=== PATIENT | male | born 1975 | race Caucasian/White ===

== ENCOUNTER → 2019-06-17 18:13 | Outpatient (BNVA) | payer OTHER, SELFPAY | PROVIDERS: Visit Provider Nurse Practitioner | DX: R50.9 Fever, unspecified (principal); L03.90 Cellulitis, unspecified; B34.9 Viral infection, unspecified; Z20.828 Contact with and (suspected) exposure to other viral communicable diseases; L03.116 Cellulitis of left lower limb; L02.416 Cutaneous abscess of left lower limb | CPT/HCPCS: 87400; 87635 ==

== ENCOUNTER 2019-11-22 00:16 | Inpatient (IN) | payer SELFPAY ==
[2019-11-22] VITALS (61 sets, daily range): BP systolic 78–130; BP diastolic 48–81; PULSE 70–88; RESP 14–18; TEMP 36.4–36.6; O2SAT 94–100; BMI 24.4
[2019-11-22] MEDS: midazolam 1 mg/mL INJ 2 mL 4 MG IVP (00:25)
[2019-11-22] MEDS: succinylcholine 20 mg/mL SDV 10mL 200 MG IVP (00:26)
[2019-11-22] MEDS: vecuronium 10 mg SDV IVP (00:30)
[2019-11-22] MEDS: propofol 1,000 MG/100 ML INJ 20 MG (00:35)
--- NOTE | 2019-11-22 00:41 | XRR_ITS ---
PROCEDURE INFORMATION: Exam: XR Chest, 1 View Exam date and time: 11/22/2019 4:17 AM Age: 43 years old Clinical indication: Other: AMS TECHNIQUE: Imaging protocol: XR of the chest Views: 1 view. COMPARISON: CR Chest 1 [place] [id number] 10/22/2018 8:34 AM FINDINGS: Tubes, catheters and devices: ET tube present, tip at the thoracic inlet, about 7-8 cm above johanna. NG tube present, passing beneath the diaphragm. The tip is likely in the fundus of the stomach. The side port of the tube may still be in the lower esophagus/GE junction region. Lungs: No CHF/pulmonary edema. Visible lungs appear essentially clear. Pleural space: No visible pneumothorax. No definite pleural fluid. Heart/Mediastinum: Heart size is within normal limits. Bones/joints: No significant acute finding. XR/XR chest 1V portable [id number] IMPRESSION: 1. No definite pneumonia or CHF. 2. ET tube and NG tube as discussed above. 3. Other findings discussed above.
--- NOTE | 2019-11-22 00:41 | CTR_ITS ---
PROCEDURE INFORMATION: Exam: CT Head Without Contrast Exam date and time: 11/22/2019 1:13 AM Age: 43 years old Clinical indication: Altered mental status/memory loss; Confusion or disorientation; Patient HX: ? Meth od; Additional info: AMS TECHNIQUE: Imaging protocol: Computed tomography of the head without contrast. Radiation optimization: All CT scans at this facility use at least one of these dose optimization techniques: automated exposure control; mA and/or kV adjustment per patient size (includes targeted exams where dose is matched to clinical indication); or iterative reconstruction. COMPARISON: CT head wo con* [id number] 10/22/2018 10:57 AM RADIATION DOSE METRICS: Total DLP (mGy-cm): 798.68 FINDINGS: Brain: No acute intracranial hemorrhage or mass effect. No definite acute infarct by CT. MRI could be more sensitive/specific for detection, as clinically directed. Ventricles: Ventricle size is normal for age. Bones/joints: No definite acute skull fracture. Sinuses: Included paranasal sinuses are essentially clear. Mastoid air cells: No significant acute finding. CT/CT head wo con* [id number] IMPRESSION: 1. No acute intracranial hemorrhage or mass effect. 2. No definite acute infarct by CT, see above. 3. Other findings discussed above. Radiation Dose CTDIVOL = (mGy): DLP = 798.68 (mGy-cm)
--- NOTE | 2019-11-22 00:43 | ECG_ITS ---
[facility] Test Date: 2019-11-22 Pat Name: Yoan Mallory Department: Room: ICU02 Gender: Male Clay Preparation Supervisor: : 1975 Requested By: Sd Shannon Order Number: [id number] Damien MD: Elo Pineda M.D. Measurements Intervals [place] Rate: 81 P: 79 [place]: 128 QRS: 76 QRSD: 104 T: 49 QT: 403 QTc: 468 Interpretive Statements SINUS RHYTHM INTERPRETATION BASED ON A DEFAULT AGE OF 40 YEARS Compared to ECG 10/26/2018 15:16:40 Myocardial infarct finding no longer present Electronically Signed On 11-23-2019 7:57:12 CDT by Elo Pineda M.D. [id number]
[2019-11-22 01:00] LABS: ABG PCO2 38.8 mmHg (35-45); ABG PH Result 7.36 (7.35-7.45); Arterial Blood Gas Hematocrit 44.8 % (42-52); Base Excess ABG -3.2 mmol/L (-2.0-2.0); Blood Gas Allen Test Pos; Blood Gas Sample Site Radial, left; Blood Gas Sample Type Arterial; HCO3 ABG 21.9 mmol/L (22-26); Oxygen Device VENT
[2019-11-22 01:17] LABS: Basophils # 0.1 10^3/uL (0.0-0.1); Basophils % 0.5 %; Eosinophils % 0.2 %; Hematocrit 45.2 % (42.0-52.0); Hemoglobin 14.6 g/dL (11.7-16.6); Lymphocytes % 11.1 %; Mean Corpuscular HGB Conc 32.3 g/dL (30.0-36.0); Mean Corpuscular Hemoglobin 31.9 pg (28.0-34.0); Mean Corpuscular Volume 98.7 fL (80-94); Mean Platelet Volume 11.1 fL (7.4-10.4); Monocytes # 0.6 10^3/uL (0.2-0.9); Neutrophils # 7.65 10^3/uL (1.8-7.7); Neutrophils % 81.9 %; Nucleated Red Blood Cells % 0 %; Platelet Count 241 10^3/cmm (130-400); Red Blood Count 4.58 10^6/uL (4.1-5.3); Red Cell Distribution Width 12.7 % (12.1-15.1); White Blood Count 9.4 10^3/uL (4.0-10.0)
[2019-11-22 01:35] LABS: Alanine Aminotransferase 33 U/L (0-41); Albumin Level 4.8 g/dL (3.5-5.2); Alkaline Phosphatase 90 IU/L (40-130); Blood Urea Nitrogen 12 mg/dL (6-20); Carbon Dioxide 22 mmol/L (22-29); Chloride 100 mmol/L (98-107); Globulin 2.8 g/dL (1.3-4.6); Glomerular Filtration Rate 81.6 mL/min (90-130); Glucose 115 mg/dL (65-115); Magnesium 2.2 mg/dL (1.7-2.3); Osmolality Calculated 283 mOsm/kg (285-295); Phosphorus 4.4 mg/dL (2.5-4.5); Sodium 138 mmol/L (136-145); Total Bilirubin 0.6 mg/dL (0.15-1.2); Total Protein 7.6 g/dL (6.6-8.7)
[2019-11-22 01:36] LABS: Acetaminophen < 5.0 ug/mL (10-30); Alcohol Level < 10 mg/dL (0-10); Salicylate < 0.3 mg/dL (3-10)
[2019-11-22 01:38] LABS: Anion Gap 20.2 (5-19); Aspartate Amino Transferase 42 U/L (0-40); Potassium 4.2 mmol/L (3.5-5.1); Troponin(5th) Baseline 9 ng/L (0-15)
[2019-11-22 01:55] LABS: Creatine Phosphokinase 2268 U/L (39-308)
[2019-11-22 02:01] LABS: Lactate (Lactic Acid level) 1.8 mmol/L (0.5-2.2)
[2019-11-22] MEDS: sodium chloride 0.9% 1,000 ML 999 ML IV (02:19)
--- NOTE | 2019-11-22 02:43 | ECG_ITS ---
[facility] Test Date: 2019-11-22 Pat Name: Yoan Mallory Department: Room: ICU02 Gender: Male Saw Feeder: : 1975 Requested By: Sd Shannon Order Number: [id number] Damien MD: Elo Pineda M.D. Measurements Intervals [place] Rate: 80 P: 70 SD: 133 QRS: -1 QRSD: 97 T: 9 QT: 416 QTc: 481 Interpretive Statements SINUS RHYTHM SEPTAL MYOCARDIAL INFARCTION [40+ ms Q WAVE IN V1/V2], OF INDETERMINATE AGE Compared to ECG 11/22/2019 03:24:49 Myocardial infarct finding now present Electronically Signed On 11-23-2019 8:25:21 CDT by Elo Pineda M.D. [email or web address] coffee memorial hospitalT[facility].[employer]/store/[id number]
--- NOTE | 2019-11-22 02:49 | PM.HP ---
Providers/Chief Complaint Chief Complaint: OD History of Present Illness Yoan Mallory is a 43 year old male dropped off of the emergency department after taking a large amount of methamphetamine from the history that was given to me by the emergency department physician. Patient is intubated and I cannot get any further information from him. While in the ER he was found to have significant decrease in his responsiveness to the point he needed intubated for airway protection. The emergency department physician tells me that he was only responsive to deep sternal rub, with agitation. No known suicide attempt, but will need interviewed regarding intention of overdose when possible. Review of Systems General: Reports: ROS unobtainable due to endotracheal tube Medications/Allergies Allergies Allergy/AdvReac Type Severity Reaction Status Date / Time clindamycin Allergy ALGY-Hives Verified 06/17/19 17:47 PFSH Acute PFSH: Medical History (Updated 11/22/19 @ 02:58 by Amador Balbuena MD) Depression Methamphetamine use Tobacco dependency Social History Smoking and tobacco status: current every day smoker Supplemental PFSH Information: History of depression and tobacco dependency taken from old records. Patient currently intubated and sedated Vitals/I&O/Wt Last Vital Signs Pulse 88 11/22/19 02:45 Resp 18 11/22/19 02:45 BP 119/81 11/22/19 02:45 Pulse Ox 100 11/22/19 02:45 Weight last 48 hrs Weight 79.379 kg Physical Exam Narrative: EXAM NARRATIVE: General exam is intubated and sedated male, no distress HEENT: Pupils equally round. Oropharynx with endotracheal tube. Neck is supple no lymphadenopathy thyromegaly Cardiovascular regular rate and rhythm without murmur, no S3 or S4 Lungs clear no wheezing or crackles Abdomen soft with positive bowel sounds. No obvious organomegaly Kim Extremities no cyanosis clubbing or edema. IO is noted left lower extremity. Multiple track segovia Skin: Track segovia is noted. Mild erythema lateral to left knee. Neurologic: Intubated and sedated and paralyzed. Urinary Catheter Management^: Kim: Cath Placed During This Visit: yes Urinary Catheter Date of Insertion: 11/22/19 Urinary Catheter Time of Insertion: 02:42 Data : 11/22/19 00:55 11/22/19 00:55 Other data: CT head, no acute findings ABG with pH 7.36, PCO2 38, PO2 490 AST slightly elevated at 42 CK elevated at 2268 Salicylate level less than 2.3, acetaminophen level less than 5, alcohol level less than 10 Chest x-ray pending Urinalysis pending and urine drug screen pending EKG reported to me to be normal, but at this point it has not crossed over to [employer]. A&P Assessment and plan (1) Methamphetamine use: Intubated and sedated Propofol, fentanyl for sedation Reevaluate later this morning to see if he is appropriate for extubation Thiamine Monitor for any withdrawal Check hepatitis panel, HIV Status: Acute (2) Rhabdomyolysis: Fluids Serial pain, electrolyte monitoring to ensure kidney function recovers Status: Acute Additional A&P Information Transaminitis. Check hepatitis panel history of tobacco dependency, will need counseling History of depression Full code Lovenox for DVT prophylaxis Attestations Medical Necessity Statement*: Will need greater than 2 midnight stay for evaluation of methamphetamine overdose Critical Care Time: 35 minutes spent in critical care time at bedside reviewing patient chart, discussion with physician, examination of this patient who had overdose of methamphetamine requiring respiratory support with endotracheal intubation and ventilation. High risk for decompensation, or withdrawal. Coding Level of Care Code Acute Salvage Supervisor for Bessyg Jessica Diagnoses Methamphetamine use F15.10 Rhabdomyolysis M62.82
[2019-11-22 03:03] LABS: Add Urine Microscopic? NO
[2019-11-22 03:07] LABS: Bilirubin Urine 1+ (NEGATIVE); Blood Urine Neg (Negative); Glucose Urine UA Norm (Normal); Ketones Urine 1+ (Negative); Leukocyte Esterase Urine Negative (Negative); Nitrate Urine Negative (Negative); Protein Urine Neg (Negative); Urine Appearance Clear (CLEAR); Urine Color Yellow (Yellow); Urobilinogen Urine 4 mg/dL (Negative); pH Urine 5 (5-7)
[2019-11-22 03:14] LABS: Amphetamines Screen Urine Positive (Negative); Barbiturates Screen Urine Negative (Negative); Benzodiazepines Screen Urine Negative (Negative); Cocaine Screen Urine Negative (Negative); Opiate Screen Urine Negative (Negative); PCP Screen Urine Positive (Negative); THC Screen Urine Negative (Negative)
--- NOTE | 2019-11-22 05:22 | PC.NURSE ---
patient was dropped at door in ER, with note stating he ingested 7 grams of meth, patient had GCS less than * initially, on placment of IO patient became combative, security called, and MD decided to because of GCS and combative situation to intubate, medications given following MD orders, ET tube placed, see RT notes, OG tube placed and verifed with xray, keith placed, urine returned, sedation medication started following orders, patient was taken to ICU in stable condition
[2019-11-22] MEDS: propofol 1,000 MG/100 ML INJ 23.8 MG IV ×2 (05:28→18:09)
[2019-11-22] MEDS: enoxaparin 40 mg/0.4 mL Syringe SUBCUT (05:28)
--- NOTE | 2019-11-22 05:29 | ED_ITS ---
HPI - Overdose General: Chief Complaint: Overdose Stated Complaint: OD Time Seen by Provider: 11/22/19 00:22 History of Present Illness: HPI Narrative: 43-year-old male dropped off at the front door by unknown object. On arrival, he was obtunded, not handling his own secretions, and responsive only to painful stimuli with nonpurposeful movement. Somewhat later, we received an anonymous call that this patient had taken 7 g of methamphetamine orally.We do not know intent. complaint: other Onset (ago): minute(s) Review of Systems General: Reports: ROS unobtainable due to medical condition and ROS unobtainable due to mental status PFS ED PFSH: Medical History (Updated 11/22/19 @ 05:47 by Sd Britton DO) Depression Methamphetamine use Tobacco dependency Social History Smoking and tobacco status: current every day smoker Physical Exam Const: GENERAL APPEARANCE: in distress and ill appearing; not well kempt ORIENTATION/CONSCIOUSNESS: Yes patient obtunded HENMT: COMMON NORMALS: normocephalic, external ears normal and Normal external nose present HEAD & SCALP: normocephalic FACE & SINUS: normal facial exam NOSE: Normal external nose present and No nasal discharge present EXTERNAL EAR: Yes external ears normal MOUTH: tongue normal and other THROAT: posterior oropharynx normal; no peritonsillar mass Eye: COMMON NORMALS: Equal, round and reactive pupils present and conjunctivae normal ALIGNMENT: Yes alignment normal EYELID: eyelids normal CONJUNC TIVA: Yes conjunctivae normal PUPIL: Yes Equal, round and reactive pupils present and Yes Dilated pupils Neck/C-Spine: COMMON NORMALS: full ROM GENERAL: No tracheal deviation Chest: COMMONS NORMALS: normal inspection of the chest CHEST: No tenderness Resp: COMMON NORMALS: clear to auscultation bilaterally EFFORT & INSPECTION: No tachypneic, No respiratory distress, No retractions, No uses accessory muscles and No tracheal deviation AUSCULTATION: clear to auscultation bilaterally, no rhonchi, wheezes and diminished lung sounds Cardio: COMMON NORMALS: regular rhythm RATE: tachycardic RHYTHM: regular rhythm HEART SOUNDS: no murmurs PERIPHERAL PULSES: radial pulses present GI: INSPECTION: No abdominal distension AUSCULTATION: No Hyperactive bowel sounds present and No Hypoactive bowel sounds present PALPATION: No Guarding due to palpation present (GI) and No Rigid due to palpation PERCUSSION: no dullness to percussion and no tympanic to percussion Neuro: STEVEN COMA SCALE: document GCS findings Steven coma scale eye opening: None [place] coma scale verbal response: None [place] coma scale motor response: Normal flexion Steven coma scale total score: 6 Psych: APPEARANCE: No well kempt ATTITUDE: Yes bizarre ACTIVITY/MOTOR BEHAVIOR: Yes psychomotor agitation and Yes fidgeting SPEECH: Yes incoherent Skin: COMMON NORMALS: no rashes or lesions noted GENERAL SKIN EXAM: no rashes or lesions noted Procedures Intubation Time out performed: No sedative: Etomidate Mg Given: 20 paralytic: Succinylcholine Mg Given: 200 Laryngoscope: Amy (4) ET Tube Size: 8 ET Tube Uncuffed: No Tube Secured Depth (cm): 24 Tube Secured Location: lips Tube Placement Confirmation: visualized tube passing through cords, equal breath sounds bilaterally and confirmation by capnometry Patient Tolerated Procedure: well and no complications Intubation Complications: none Course Vital Signs: Vital signs: Vital Signs Temperature 97.6 F 11/22/19 04:45 Pulse Rate 77 11/22/19 05:00 Respiratory Rate 14 11/22/19 05:11 Blood Pressure 114/81 11/22/19 05:00 Pulse Oximetry 100 11/22/19 05:00 MDM - Overdose MDM Narrative: Medical decision making narrative: 43-year-old obtunded male with a loose history of methamphetamine ingestion. On arrival, he was not maintaining his airway well, had trouble with secretions, significantly decreased mental status with a GCS of 6. He was intubated on arrival without complication. He was placed on the ventilator, and worked up further. CT revealed no acute findings. Chest x-ray is negative. There is appropriate placement of NG tube and ET tube by chest x-ray. His laboratory shows a hemoglobin of 14.6, white count 9.4, and normal electrolytes. He has a significantly elevated CK level I expect this will only increase. He will go to the ICU. Lab Data: Labs: Lab Results 11/22/19 11/22/19 11/22/19 Range/Units 00:50 00:50 00:52 WBC (4.0-10.0) 10^3/ uL RBC (4.1-5.3) 10^6/u L Hgb (11.7-16.6) g/dL Hct (42.0-52.0) % MCV (80-94) fL MCH (28.0-34.0) pg MCHC (30.0-36.0) g/dL RDW (12.1-15.1) % Plt Count (130-400) 10^3/c mm MPV (7.4-10.4) fL Neut % (Auto) % Lymph % (Auto) % [place] % (Auto) % Eos % (Auto) % Baso % (Auto) % Neut # (Auto) (1.8-7.7) 10^3/u L Lymph # (Auto) (0.8-4.8) 10^3/u L [place] # (Auto) (0.2-0.9) 10^3/u L Eos # (Auto) (0.0-0.8) 10^3/u L Baso # (Auto) (0.0-0.1) 10^3/u L Nucleated RBC % (a uto) % Nucleated RBCs # /100WBC Specimen Type Arterial Sample Site Radial, left ABG pH 7.36 (7.35-7.45) ABG pCO2 38.8 (35-45) mmHg ABG pO2 490.0 H (80.0-100.0) mmH g ABG HCO3 21.9 L (22-26) mmol/L ABG Base Excess -3.2 L (-2.0-2.0) mmol/ L Ary Test Pos Hematocrit 44.8 (42-52) % O2 Delivery Device Vent Core Java Software Engineer ID [email or web address] Sodium (136-145) mmol/L Potassium (3.5-5.1) mmol/L Chloride (98-107) mmol/L Carbon Dioxide (22-29) mmol/L Anion Gap (5-19) BUN (6-20) mg/dL Creatinine (0.7-1.2) mg/dL GFR Calculation (90-130) mL/min Glucose (65-115) mg/dL Calculated Osmolal ity (285-295) mOsm/k g Lactate (0.5-2.2) mmol/L Calcium (8.5-10.5) mg/dL Phosphorus (2.5-4.5) mg/dL Magnesium (1.7-2.3) mg/dL Total Bilirubin (0.15-1.2) mg/dL AST (0-40) U/L ALT (0-41) U/L Alkaline Phosphata se (40-130) IU/L Creatine Kinase (39-308) U/L Troponin T Baselin e (0-15) ng/L C-Reactive Protein (0.0-4.9) mg/L Total Protein (6.6-8.7) g/dL Albumin (3.5-5.2) g/dL Globulin (1.3-4.6) g/dL Urine Color Yellow (Yellow) Urine Appearance Clear (CLEAR) Urine pH 5 (5-7) Ur Specific Gravit y 1.030 (1.005-1.030) Urine Protein Neg (Negative) Urine Glucose (UA) Norm (Normal) Urine Ketones 1+ H (Negative) Urine Blood Neg (Negative) Urine Nitrate Negative (Negative) Urine Bilirubin 1+ H (NEGATIVE) Urine Urobilinogen 4 H (Negative) mg/dL Ur Leukocyte Annabella ase Negative (Negative) Salicylates (3-10) mg/dL Urine Opiates Scre en Negative (Negative) ng/mL Acetaminophen (10-30) ug/mL Ur Barbiturates Sc reen Negative (Negative) ng/mL Ur Phencyclidine S crn Positive H (Negative) ng/mL Ur Amphetamines Sc reen Positive H (Negative) ng/mL U Benzodiazepines Scrn Negative (Negative) ng/mL Urine Cocaine Scre en Negative (Negative) ng/mL U Marijuana (THC) Screen Negative (Negative) ng/mL Ethyl Alcohol (0-10) mg/dL 11/22/19 11/22/19 11/22/19 Range/Units 00:55 00:55 00:55 WBC 9.4 (4.0-10.0) 10^3/ uL RBC 4.58 (4.1-5.3) 10^6/u L Hgb 14.6 (11.7-16.6) g/dL Hct 45.2 (42.0-52.0) % MCV 98.7 H (80-94) fL MCH 31.9 (28.0-34.0) pg MCHC 32.3 (30.0-36.0) g/dL RDW 12.7 (12.1-15.1) % Plt Count 241 (130-400) 10^3/c mm MPV 11.1 H (7.4-10.4) fL Neut % (Auto) 81.9 % Lymph % (Auto) 11.1 % [place] % (Auto) 6.0 % Eos % (Auto) 0.2 % Baso % (Auto) 0.5 % Neut # (Auto) 7.65 (1.8-7.7) 10^3/u L Lymph # (Auto) 1.0 (0.8-4.8) 10^3/u L [place] # (Auto) 0.6 (0.2-0.9) 10^3/u L Eos # (Auto) 0.0 (0.0-0.8) 10^3/u L Baso # (Auto) 0.1 (0.0-0.1) 10^3/u L Nucleated RBC % (a uto) 0 % Nucleated RBCs # 0.0 /100WBC Specimen Type Sample Site ABG pH (7.35-7.45) ABG pCO2 (35-45) mmHg ABG pO2 (80.0-100.0) mmH g ABG HCO3 (22-26) mmol/L ABG Base Excess (-2.0-2.0) mmol/ L Ray Test Hematocrit (42-52) % O2 Delivery Device Core Java Software Engineer ID Sodium 138 (136-145) mmol/L Potassium 4.2 (3.5-5.1) mmol/L Chloride 100 (98-107) mmol/L Carbon Dioxide 22 (22-29) mmol/L Anion Gap 20.2 H (5-19) BUN 12 (6-20) mg/dL Creatinine 1.0 (0.7-1.2) mg/dL GFR Calculation 81.6 L (90-130) mL/min Glucose 115 (65-115) mg/dL Calculated Osmolal ity 283 L (285-295) mOsm/k g Lactate (0.5-2.2) mmol/L Calcium 9.0 (8.5-10.5) mg/dL Phosphorus 4.4 (2.5-4.5) mg/dL Magnesium 2.2 (1.7-2.3) mg/dL Total Bilirubin 0.6 (0.15-1.2) mg/dL AST 42 H (0-40) U/L ALT 33 (0-41) U/L Alkaline Phosphata se 90 (40-130) IU/L Creatine Kinase 2268 H* (39-308) U/L Troponin T Baselin e 9 (0-15) ng/L C-Reactive Protein 7.0 H (0.0-4.9) mg/L Total Protein 7.6 (6.6-8.7) g/dL Albumin 4.8 (3.5-5.2) g/dL Globulin 2.8 (1.3-4.6) g/dL Urine Color (Yellow) Urine Appearance (CLEAR) Urine pH (5-7) Ur Specific Gravit y (1.005-1.030) Urine Protein (Negative) Urine Glucose (UA) (Normal) Urine Ketones (Negative) Urine Blood (Negative) Urine Nitrate (Negative) Urine Bilirubin (NEGATIVE) Urine Urobilinogen (Negative) mg/dL Ur Leukocyte Annabella ase (Negative) Salicylates < 0.3 L (3-10) mg/dL Urine Opiates Scre en (Negative) ng/mL Acetaminophen < 5.0 L (10-30) ug/mL Ur Barbiturates Sc reen (Negative) ng/mL Ur Phencyclidine S crn (Negative) ng/mL Ur Amphetamines Sc reen (Negative) ng/mL U Benzodiazepines Scrn (Negative) ng/mL Urine Cocaine Scre en (Negative) ng/mL U Marijuana (THC) Screen (Negative) ng/mL Ethyl Alcohol < 10 (0-10) mg/dL 11/22/19 Range/Units 01:30 WBC (4.0-10.0) 10^3/ uL RBC (4.1-5.3) 10^6/u L Hgb (11.7-16.6) g/dL Hct (42.0-52.0) % MCV (80-94) fL MCH (28.0-34.0) pg MCHC (30.0-36.0) g/dL RDW (12.1-15.1) % Plt Count (130-400) 10^3/c mm MPV (7.4-10.4) fL Neut % (Auto) % Lymph % (Auto) % [place] % (Auto) % Eos % (Auto) % Baso % (Auto) % Neut # (Auto) (1.8-7.7) 10^3/u L Lymph # (Auto) (0.8-4.8) 10^3/u L [place] # (Auto) (0.2-0.9) 10^3/u L Eos # (Auto) (0.0-0.8) 10^3/u L Baso # (Auto) (0.0-0.1) 10^3/u L Nucleated RBC % (a uto) % Nucleated RBCs # /100WBC Specimen Type Sample Site ABG pH (7.35-7.45) ABG pCO2 (35-45) mmHg ABG pO2 (80.0-100.0) mmH g ABG HCO3 (22-26) mmol/L ABG Base Excess (-2.0-2.0) mmol/ L Ray Test Hematocrit (42-52) % O2 Delivery Device Core Java Software Engineer ID Sodium (136-145) mmol/L Potassium (3.5-5.1) mmol/L Chloride (98-107) mmol/L Carbon Dioxide (22-29) mmol/L Anion Gap (5-19) BUN (6-20) mg/dL Creatinine (0.7-1.2) mg/dL GFR Calculation (90-130) mL/min Glucose (65-115) mg/dL Calculated Osmolal ity (285-295) mOsm/k g Lactate 1.8 (0.5-2.2) mmol/L Calcium (8.5-10.5) mg/dL Phosphorus (2.5-4.5) mg/dL Magnesium (1.7-2.3) mg/dL Total Bilirubin (0.15-1.2) mg/dL AST (0-40) U/L ALT (0-41) U/L Alkaline Phosphata se (40-130) IU/L Creatine Kinase (39-308) U/L Troponin T Baselin e (0-15) ng/L C-Reactive Protein (0.0-4.9) mg/L Total Protein (6.6-8.7) g/dL Albumin (3.5-5.2) g/dL Globulin (1.3-4.6) g/dL Urine Color (Yellow) Urine Appearance (CLEAR) Urine pH (5-7) Ur Specific Gravit y (1.005-1.030) Urine Protein (Negative) Urine Glucose (UA) (Normal) Urine Ketones (Negative) Urine Blood (Negative) Urine Nitrate (Negative) Urine Bilirubin (NEGATIVE) Urine Urobilinogen (Negative) mg/dL Ur Leukocyte Annabella ase (Negative) Salicylates (3-10) mg/dL Urine Opiates Scre en (Negative) ng/mL Acetaminophen (10-30) ug/mL Ur Barbiturates Sc reen (Negative) ng/mL Ur Phencyclidine S crn (Negative) ng/mL Ur Amphetamines Sc reen (Negative) ng/mL U Benzodiazepines Scrn (Negative) ng/mL Urine Cocaine Scre en (Negative) ng/mL U Marijuana (THC) Screen (Negative) ng/mL Ethyl Alcohol (0-10) mg/dL Critical Care Time Critical Care Time: Critical Care Time: Yes Total Critical Care Time: 40 Attestation: This case had a high probability of a clinically significant, sudden, or life threatening deterioration of this patient's condition which required my full and direct attention, intervention and personal management. Discharge Plan Discharge Patient Disposition: Admitted As Inpatient Admit Provider: Amador Balbuena Clinical Impression: Methamphetamine use Drug overdose Qualifiers: Encounter type: initial encounter Injury intent: undetermined intent Qualified Code(s): T50.904A - Poisoning by unspecified drugs, medicaments and biological substances, undetermined, initial encounter Rhabdomyolysis Qualifiers: Rhabdomyolysis type: non-traumatic Qualified Code(s): M62.82 - Rhabdomyolysis Condition: Stable Interventions: ED Discharge Assessment Last Done: 11/22/19 05:27 ED Charges Last Done: 11/22/19 05:27 Discharge Date/Time: 11/22/19 05:28 Coding Level of Care Code ED Cuff Matcher for Sharonda Fwd Exam Comprehensive
[2019-11-22] MEDS: sodium chloride 0.9% 1,000 ML 175 ML IV ×3 (06:01→18:10)
--- NOTE | 2019-11-22 06:43 | ECG_ITS ---
[facility] Test Date: 2019-11-22 Pat Name: Yoan Mallory Department: Room: ICU02 Gender: Male Building Performance Specialist: : 1975 Requested By: Sd Shannon Order Number: [id number] Damien MD: Elo Pineda M.D. Measurements Intervals [place] Rate: 71 P: 75 [place]: 130 QRS: 40 QRSD: 101 T: 9 QT: 461 QTc: 504 Interpretive Statements SINUS RHYTHM POSSIBLE RIGHT VENTRICULAR CONDUCTION DELAY [RSR (QR) IN V1/V2] ANTEROSEPTAL MYOCARDIAL INFARCTION [40+ ms Q WAVE IN V1-V4], OF INDETERMINATE AGE Compared to ECG 11/22/2019 05:28:08 No significant changes Electronically Signed On 11-23-2019 8:25:00 CDT by Elo Pineda M.D. [email or web address] [email or web address] [email or web address] Genomicsmercy [facility].[employer]/store/[id number]
[2019-11-22 07:49] LABS: Hepatitis A Antibody IgM Non-Reactive (Nonreactive); Hepatitis B Core IgM Non-Reactive (Nonreactive); Hepatitis B Surface Antigen Non-Reactive (Nonreactive); Hepatitis C Virus Antibody Non-Reactive (Nonreactive)
[2019-11-22 08:29] LABS: HIV 1 & 2 Antibody Non-Reactive (Non-Reactiv); HIV 1 & 2 Antigen Non-Reactive (Non-Reactiv)
[2019-11-22] MEDS: thiamine 100 mg Tablet OG-TUBE (08:48)
[2019-11-22] MEDS: propofol 1,000 MG/100 ML INJ 19.1 MG IV (09:03)
[2019-11-22 11:17] LABS: Troponin T (5th) Once 9 ng/L (0-15)
[2019-11-22] MEDS: propofol 1,000 MG/100 ML INJ 11.9 MG IV (13:37)
[2019-11-22 16:01] LABS: ABG PCO2 43.7 mmHg (35-45); ABG PH Result 7.41 (7.35-7.45); Alveolar-Arterial Oxygen Gradi 6.8 mmHg (5-10); Arterial Blood Gas Hematocrit 40.5 % (42-52); Base Excess ABG 2.2 mmol/L (-2.0-2.0); Blood Gas Allen Test Pos; Blood Gas Operator Identificat GD; Blood Gas Sample Site Radial, left; Blood Gas Sample Type Arterial; Blood Gas Tidal Volume 0.55; Carboxyhemoglobin 0.6 %THgb (0.4-20.1); HCO3 ABG 27.4 mmol/L (22-26); Ionized Calcium Level - ABG 1.2 mmol/L (1.1-1.4); Oxygen Device VENT; Oxygen Saturation ABG 97.6; PO2 ABG 93.3 mmHg (80.0-100.0); Potassium Level - ABG 3.7 mmol/L (3.5-5.0); Total Hemoglobin 13.2 g/dL (14-18)
--- NOTE | 2019-11-22 16:21 | PC.NURSE ---
Patient woke up after weaning sedation, combative, sitting up in bed, try to pull hands from restraints, et trying to remove tube by coughing. Sedation titrated back to baseline. Patient resting comfortably. Free from harm. Will continue to monitor.
--- NOTE | 2019-11-22 16:46 | P.PN_ITS ---
Subjective Subjective: Interval history: Overnight labs and H&P reviewed. Patient remains hemodynamically stable. Remains intubated sedated, currently on fentanyl and propofol. Medications: Reviewed: Yes Vitals/I&O/Wt Last Vital Signs Temp 97.5 F L 11/22/19 12:30 Pulse 85 11/22/19 16:00 Resp 14 11/22/19 16:08 BP 130/73 11/22/19 16:00 Pulse Ox 98 11/22/19 16:00 11/22/19 11/22/19 11/22/19 06:59 14:59 22:59 Intake Total 1187.806 / 1187.806 44.860 / 1232.666 Output Total 250 / 250 950 / 950 Balance -250 / -250 237.806 / 237.806 44.860 / 282.666 Weight last 48 hrs Weight 79.333 kg Weight 79.379 kg Physical Exam Narrative: EXAM NARRATIVE: GEN:intubated, sedated CVS: S1S2 N RS: CTA B/L anteriorly Abd: Soft, nt/nd , bs+ CUP MACHINE OPERATOR: unable to assess EXT: multiple track segovia over B/L elbows and thighs Urinary Catheter Management^: Kim: Cath Placed During This Visit: yes Reason for Continuing Indwelling Catheter: Accurate Measurement of Urinary Output in Critically Ill Patients Urinary Catheter Date of Insertion: 11/22/19 Urinary Catheter Time of Insertion: 02:42 Data : 11/22/19 00:55 11/22/19 00:55 Micro: Microbiology 11/22/19 09:50 Gram Stain - Final Sputum - Endotracheal Tube Aspirate A&P Assessment and plan (1) Methamphetamine use: Intubated and sedated Propofol, fentanyl for sedation No significant change in mnetation with attempting to reduce propofol for now Continue attmepts to wean and ABG prn hepatitis panel, HIV negative Status: Acute (2) Rhabdomyolysis: Fluids Serial pain, electrolyte monitoring to ensure kidney function recovers Status: Acute Qualifiers: Rhabdomyolysis type: non-traumatic Qualified Code(s): M62.82 - Rhabdomyolysis Additional A&P Information Transaminitis. Check hepatitis panel history of tobacco dependency, will need counseling once off vent History of depression Full code Lovenox for DVT prophylaxis Attestations Medical Necessity Statement*: intubated, sedated, from meth overdose, continue attenpts to wean Coding Level of Care Code Acute Florist Supplies Salesperson for Chg Fwd Diagnoses Methamphetamine use F15.10 Rhabdomyolysis M62.82 Rhabdomyolysis type: non-traumatic
[2019-11-22] MEDS: pantoprazole 40 mg SDV IVP (21:17)
[2019-11-22] MEDS: propofol 1,000 MG/100 ML INJ 21.4 MG IV (22:17)
[2019-11-23] VITALS (56 sets, daily range): BP systolic 82–116; BP diastolic 47–72; PULSE 76–88; RESP 14–18; TEMP 36.6–37.4; O2SAT 93–99
[2019-11-23] MEDS: propofol 1,000 MG/100 ML INJ 19.1 MG IV ×3 (03:18→19:41)
[2019-11-23] MEDS: enoxaparin 40 mg/0.4 mL Syringe SUBCUT (04:39)
[2019-11-23 04:53] LABS: Basophils # 0.1 10^3/uL (0.0-0.1); Eosinophils # 0.1 10^3/uL (0.0-0.8); Eosinophils % 1.8 %; Hematocrit 35.5 % (42.0-52.0); Hemoglobin 11.5 g/dL (11.7-16.6); Lymphocytes % 39.6 %; Mean Corpuscular HGB Conc 32.4 g/dL (30.0-36.0); Mean Corpuscular Hemoglobin 31.9 pg (28.0-34.0); Mean Corpuscular Volume 98.6 fL (80-94); Mean Platelet Volume 11.3 fL (7.4-10.4); Monocytes # 0.5 10^3/uL (0.2-0.9); Monocytes % 10.2 %; Neutrophils # 2.32 10^3/uL (1.8-7.7); Neutrophils % 47.2 %; Nucleated Red Blood Cells % 0 %; Platelet Count 182 10^3/cmm (130-400); Red Cell Distribution Width 13.3 % (12.1-15.1); White Blood Count 4.9 10^3/uL (4.0-10.0)
[2019-11-23 05:12] LABS: ABG PCO2 33.2 mmHg (35-45); ABG PH Result 7.47 (7.35-7.45); Arterial Blood Gas Hematocrit 37.5 % (42-52); Base Excess ABG 0.9 mmol/L (-2.0-2.0); Blood Gas Allen Test Pos; Blood Gas Sample Site Radial, left; Blood Gas Sample Type Arterial; Blood Gas Tidal Volume 0.55; HCO3 ABG 24.2 mmol/L (22-26); Oxygen Device VENT; PO2 ABG 54.4 mmHg (80.0-100.0)
[2019-11-23 05:16] LABS: Magnesium 2.1 mg/dL (1.7-2.3)
[2019-11-23 05:18] LABS: Alanine Aminotransferase 20 U/L (0-41); Albumin Level 3.2 g/dL (3.5-5.2); Alkaline Phosphatase 77 IU/L (40-130); Anion Gap 11.6 (5-19); Aspartate Amino Transferase 22 U/L (0-40); Blood Urea Nitrogen 11 mg/dL (6-20); Calcium 8.1 mg/dL (8.5-10.5); Carbon Dioxide 25 mmol/L (22-29); Chloride 108 mmol/L (98-107); Globulin 2.3 g/dL (1.3-4.6); Glomerular Filtration Rate 66.1 mL/min (90-130); Glucose 91 mg/dL (65-115); Osmolality Calculated 288 mOsm/kg (285-295); Potassium 3.6 mmol/L (3.5-5.1); Sodium 141 mmol/L (136-145); Total Bilirubin 0.4 mg/dL (0.15-1.2); Total Protein 5.5 g/dL (6.6-8.7)
[2019-11-23 05:26] LABS: Creatine Phosphokinase 575 U/L (39-308)
[2019-11-23] MEDS: sodium chloride 0.9% 1,000 ML 175 ML IV ×4 (05:35→18:18)
--- NOTE | 2019-11-23 06:02 | PC.NURSE ---
Patient's sedation slowly weaned throughout the shift per protocol. Patient given bed bath, awoke, agitated and fighting turns from staff; patient required bolus of propofol for proper sedation, able to reposition to comfort, wrist restraints in place.
[2019-11-23] MEDS: propofol 1,000 MG/100 ML INJ 23.8 MG IV ×2 (06:29→09:56)
--- NOTE | 2019-11-23 07:47 | P.PN_ITS ---
Subjective Subjective: Interval history: Currently sedated on the ventilator. Per discussion with nursing staff, sedation was attempted overnight, however, he became restless, and had to be re-sedated. Vitals/I&O/Wt Last Vital Signs Temp 97.8 F 11/23/19 07:00 Pulse 86 11/23/19 07:00 Resp 14 11/23/19 07:00 BP 110/62 11/23/19 07:00 Pulse Ox 97 11/23/19 07:00 11/22/19 11/23/19 11/23/19 22:59 06:59 14:59 Intake Total 1233.573 / 2421.379 2137.885 / 4559.264 Output Total 400 / 1350 375 / 1725 Balance 833.573 / 9739.945 8548.885 / 2834.264 Weight last 48 hrs Weight 78.925 kg Weight 79.333 kg Weight 79.379 kg Physical Exam Const: COMMON NORMALS: no acute distress OTHER: Currently sedated, calm. HENMT: COMMON NORMALS: oropharynx normal Neck/C-Spine: COMMON NORMALS: no JVD Resp: COMMON NORMALS: normal respiratory effort and clear to auscultation bilaterally AUSCULTATION: clear to auscultation bilaterally Cardio: COMMON NORMALS: no JVD, regular rhythm, S1 normal heart sound present, S2 normal heart sound present and No murmurs present (Cardio) RHYTHM: regular rhythm HEART SOUNDS: S1 normal heart sound present and S2 normal heart sound present GI: COMMON NORMALS: Normal to inspection, nondistended, normoactive bowel sounds present, Soft to palpation and non-tender PALPATION: Yes Soft to palpation Extremity: COMMON NORMALS: no joint enlargement and no pedal edema Neuro: OTHER: Reported to be moving about in bed with risk of self extubation, requiring soft restraints, increase in sedation. Skin: OTHER: Several small lesions noted on the skin, including right wrist on anterior lateral surface which appears to be more recent. Small lesions 4 x 4 mm perhaps excoriated papules noted on left lower leg. I do not see injection segovia between the toes. Urinary Catheter Management^: Kim: Cath Placed During This Visit: yes Reason for Continuing Indwelling Catheter: Accurate Measurement of Urinary Output in Critically Ill Patients Urinary Catheter Date of Insertion: 11/22/19 Urinary Catheter Time of Insertion: 02:42 Data : 11/23/19 04:10 11/23/19 04:10 Micro: Microbiology 11/22/19 09:50 Gram Stain - Final Sputum - Endotracheal Tube Aspirate A&P Assessment and plan (1) Methamphetamine use: Restless overnight. Had to be re-sedated. Continue sedation at this time to avoid injury to self or others. Continue supportive care following methamphetamine overdose and possible withdrawal. Unclear circumstances behind methamphetamine overdose. Will need to discuss after he is able to give some history. CT head on admission without acute findings. Afebrile. hepatitis panel, HIV negative Status: Acute (2) Rhabdomyolysis: CK with improvement. Currently continue today given he still is restless when trying to wean off. Fluids Serial pain, electrolyte monitoring to ensure kidney function recovers Status: Acute Qualifiers: Rhabdomyolysis type: non-traumatic Qualified Code(s): M62.82 - Rhabdom yolysis Additional A&P Information Transaminitis. Negative hepatitis panel history of tobacco dependency, will need counseling once off vent History of depression Full code Lovenox for DVT prophylaxis Attestations Medical Necessity Statement*: Continue admission for assessment of management following methamphetamine overdose, possible withdrawal. Requiring mechanical ventilatory support and IV sedation due to severe restlessness. Critical Care Time: In addition to noncritical issues 35 minutes critical care time spent on assessment and management of immediately life-threatening methamphetamine overdose, possibly withdrawal, resulting in severe restlessness, rhabdomyolysis requiring intravenous sedation and mechanical ventilatory support. Coding Level of Care Code Acute Forensic Materials Engineer for Sharonda Lopez Diagnoses Methamphetamine use F15.10 Rhabdomyolysis M62.82 Rhabdomyolysis type: non-traumatic
[2019-11-23] MEDS: thiamine 100 mg Tablet OG-TUBE (08:14)
[2019-11-23] MEDS: pantoprazole 40 mg SDV IVP ×2 (08:14→20:58)
--- NOTE | 2019-11-23 14:29 | PC.NURSE ---
Awake (still on sedation and ventilator) Patient awake, follows commands, equal pre sales technical engineer and pupils. Moves all extremities with equal strength. Patient calm at this time.
--- NOTE | 2019-11-23 14:47 | PC.NURSE ---
Pt restless on vent, sedation turned back up. See MAR for rates.
[2019-11-24] VITALS (40 sets, daily range): BP systolic 97–124; BP diastolic 52–76; PULSE 76–124; RESP 10–18; TEMP 37.1–37.7; O2SAT 92–99
[2019-11-24] MEDS: propofol 1,000 MG/100 ML INJ 21.4 MG IV
[2019-11-24] MEDS: propofol 1,000 MG/100 ML INJ 23.8 MG IV ×2 (04:09→07:10)
[2019-11-24] MEDS: acetaminophen 325 mg Tablet 650 MG PO (04:09)
[2019-11-24] MEDS: enoxaparin 40 mg/0.4 mL Syringe SUBCUT (04:10)
[2019-11-24 05:28] LABS: Blood Gas Sample Site Brachial, right; Blood Gas Sample Type Arterial; Blood Gas Tidal Volume 0.55; Oxygen Device VENT
[2019-11-24] MEDS: sodium chloride 0.9% 1,000 ML 175 ML IV ×2 (06:06)
[2019-11-24 06:32] LABS: Basophils # 0.1 10^3/uL (0.0-0.1); Basophils % 0.6 %; Eosinophils # 0.2 10^3/uL (0.0-0.8); Eosinophils % 1.9 %; Hematocrit 36.1 % (42.0-52.0); Lymphocytes # 1.5 10^3/uL (0.8-4.8); Lymphocytes % 17.1 %; Mean Corpuscular HGB Conc 30.5 g/dL (30.0-36.0); Mean Corpuscular Hemoglobin 31.6 pg (28.0-34.0); Mean Corpuscular Volume 103.7 fL (80-94); Mean Platelet Volume 10.9 fL (7.4-10.4); Monocytes # 0.7 10^3/uL (0.2-0.9); Monocytes % 8.1 %; Neutrophils % 72.1 %; Nucleated Red Blood Cells % 0 %; Platelet Count 172 10^3/cmm (130-400); Red Blood Count 3.48 10^6/uL (4.1-5.3); Red Cell Distribution Width 13.6 % (12.1-15.1); White Blood Count 8.5 10^3/uL (4.0-10.0)
--- NOTE | 2019-11-24 06:42 | PC.NURSE ---
Shift Events: Patient remains intubated and sedated. Sedation increased due to agitation. Patient follows commands and moves purposefully. Able to answer simple questions. Pain well controlled with Fentanyl drip. Urine output minimal. Remains tea-colored and cloudy. Sputum thick and tenacious. VSS.
[2019-11-24 06:48] LABS: Alanine Aminotransferase 20 U/L (0-41); Albumin Level 2.8 g/dL (3.5-5.2); Alkaline Phosphatase 73 IU/L (40-130); Anion Gap 14.5 (5-19); Aspartate Amino Transferase 36 U/L (0-40); Blood Urea Nitrogen 10 mg/dL (6-20); Calcium 7.8 mg/dL (8.5-10.5); Carbon Dioxide 18 mmol/L (22-29); Chloride 111 mmol/L (98-107); Globulin 2.4 g/dL (1.3-4.6); Glomerular Filtration Rate 81.6 mL/min (90-130); Glucose 68 mg/dL (65-115); Osmolality Calculated 284 mOsm/kg (285-295); Potassium 3.5 mmol/L (3.5-5.1); Sodium 140 mmol/L (136-145); Total Bilirubin 0.5 mg/dL (0.15-1.2); Total Protein 5.2 g/dL (6.6-8.7)
--- NOTE | 2019-11-24 07:52 | XR_ITS ---
WS: [id number] CHEST XRAY TECHNIQUE: Portable chest. CLINICAL INFORMATION: fever COMPARISON: November 22, 2019 FINDINGS: Endotracheal tube with tip above the johanna. Enteric tube tip below the diaphragm. Heart: Normal cardiac silhouette. Lungs: Patchy right hilar opacity appears new from previous. Recommend correlation for pneumonia. Lef t lung is well aerated. Bones: Normal visualized bony structures. XR/XR chest 1V portable [id number] IMPRESSION: 1. New patchy right hilar and right lower lobe infiltrate. Recommend correlati on for pneumonia. 2. Endotracheal tube with tip above the johanna. Enteric tube tip below the [place] phragm.
[2019-11-24] MEDS: thiamine 100 mg Tablet OG-TUBE (08:38)
[2019-11-24] MEDS: pantoprazole 40 mg SDV IVP (08:38)
--- NOTE | 2019-11-24 09:23 | PM.PN ---
Subjective Subjective: Interval history: She appears to be more lucid, intermittently answers some questions. Denies being in pain. Does follow some commands, squeezing his hands bilaterally. Does fall asleep easily. Noted to have pretty thick sputum secretions from ETT this morning. This morning noted to have low-grade temp 99.9. Does not answer when asked if remembers anything prior to hospitalization. Vitals/I&O/Wt Last Vital Signs Temp 98.7 F 11/24/19 08:57 Pulse 81 11/24/19 08:00 Resp 14 11/24/19 08:00 BP 100/54 11/24/19 08:00 Pulse Ox 98 11/24/19 08:00 11/23/19 11/24/19 11/24/19 22:59 06:59 14:59 Intake Total 1104.963 / 2315.764 2270.692 / 4586.456 71.797 / 71.797 Output Total 200 / 200 380 / 580 Balance 904.963 / 2115.764 1890.692 / 4006.456 71.797 / 71.797 Weight last 48 hrs Weight 82.1 kg Weight 78.925 kg Physical Exam Const: COMMON NORMALS: no acute distress OTHER: Currently sedated, calm. HENMT: COMMON NORMALS: oropharynx normal Neck/C-Spine: COMMON NORMALS: no JVD Resp: COMMON NORMALS: normal respiratory effort and clear to auscultation bilaterally AUSCULTATION: clear to auscultation bilaterally Cardio: COMMON NORMALS: no JVD, regular rhythm, S1 normal heart sound present, S2 normal heart sound present and No murmurs present (Cardio) RHYTHM: regular rhythm HEART SOUNDS: S1 normal heart sound present and S2 normal heart sound present GI: COMMON NORMALS: Normal to inspection, nondistended, normoactive bowel sounds present, Soft to palpation and non-tender PALPATION: Yes Soft to palpation Extremity: COMMON NORMALS: no joint enlargement and no pedal edema Neuro: OTHER: Reported to be moving about in bed with risk of self extubation, requiring soft restraints, increase in sedation. Skin: OTHER: Several small lesions noted on the skin, including right wrist on anterior lateral surface which appears to be more recent. Small lesions 4 x 4 mm perhaps excoriated papules noted on left lower leg. I do not see injection segovia between the toes. Urinary Catheter Management^: Kim: Cath Placed During This Visit: yes Reason for Continuing Indwelling Catheter: Accurate Measurement of Urinary Output in Critically Ill Patients Urinary Catheter Date of Insertion: 11/22/19 Urinary Catheter Time of Insertion: 02:42 Data : 11/24/19 06:20 11/24/19 06:20 Micro: Microbiology 11/23/19 22:19 Gram Stain - Final Sputum - Endotracheal Tube Aspirate 11/22/19 09:50 Gram Stain - Final Sputum - Endotracheal Tube Aspirate Sputum Culture - Preliminary A&P Assessment and plan (1) Methamphetamine use: Mental status appears to be recovering slowly. He is now following some commands, answering few questions. Does not answer when asked if remembers anything from prior to hospitalization. Spiked fever this morning, appears to have right lower lobe pneumonia likely aspiration with his encephalopathy due to drug intake on admission. Continue sedation at this time to avoid injury to self or others. Continue supportive care following methamphetamine overdose and possible withdrawal. Treat PNA. Wean sedation slowly as tolerating. Weaning trial for extubation if mental status continues to improve. Unclear circumstances behind methamphetamine overdose. Will need to discuss after he is able to give some history. CT head on admission without acute findings. Afebrile. hepatitis panel, HIV negative Status: Acute (2) Rhabdomyolysis: CK with improvement. Currently continue today given he still is restless when trying to wean off. Fluids Serial pain, electrolyte monitoring to ensure kidney function recovers Status: Acute Qualifiers: Rhabdomyolysis type: non-traumatic Qualified Code(s): M62.82 - Rhabdomyolysis Additional A&P Information Pneumonia: Right lower lobe infiltrates, this morning temp 99.9. Sputum culture showing some GPC. We will add Zosyn for now due to high suspicion for aspiration. Transaminitis. Negative hepatitis panel history of tobacco dependency, will need counseling once off vent History of depression Full code Lovenox for DVT prophylaxis Attestations Medical Necessity Statement*: Continue admission for assessment and management after methamphetamine intoxication, possible withdrawal, PNA. Coding Level of Care Code Acute Water [employer] Sewer Systems Supervisor for Sharonda Lopez Diagnoses Methamphetamine use F15.10 Rhabdomyolysis M62.82 Rhabdomyolysis type: non-traumatic
[2019-11-24 09:45] LABS: SARS Covid-2 Antigen Negative (Negative)
[2019-11-24] MEDS: piperacillin-tazobactam 3.375 GM in sodium chloride 0.9% (plus) 50 ML IV (10:22)
[2019-11-24] MEDS: dextrose 5% 1,000 ML 30 ML IV (10:23)
[2019-11-24 10:41] LABS: Urine Appearance Hazy (CLEAR); Urine Color Other (Yellow)
[2019-11-24 10:42] LABS: Add Urine Microscopic? YES; Bilirubin Urine Neg (NEGATIVE); Blood Urine 3+ (Negative); Glucose Urine UA Norm (Normal); Ketones Urine 3+ (Negative); Leukocyte Esterase Urine Negative (Negative); Nitrate Urine Negative (Negative); Protein Urine 1+ (Negative); Specific Gravity, Urine 1.025 (1.005-1.030); Urobilinogen Urine 4 mg/dL (Negative); pH Urine 5 (5-7)
[2019-11-24 10:43] LABS: Add Urine Culture? Yes; Amorphous Sediment Urine 1+; Bacteria Urine 2+; Mucus Urine 1+; RBC Urine >100 /hpf (0-2); Squamous Epithelial Cell Urine 0-4 (0-5); WBC Urine 0-4 /hpf (0-5)
[2019-11-24 10:55] LABS: Influenza A by IFA Negative (Negative); Influenza B by IFA Negative (Negative)
[2019-11-24 10:59] LABS: Glucose Point of Care 61 mg/dL (70-110)
[2019-11-24 12:51] LABS: Glucose Point of Care 60 mg/dL (70-110)
--- NOTE | 2019-11-24 12:56 | PC.NURSE ---
sedation off at 1245
[2019-11-24 13:09] LABS: ABG PCO2 37.3 mmHg (35-45); ABG PH Result 7.35 (7.35-7.45); Arterial Blood Gas Hematocrit 36.1 % (42-52); Base Excess ABG -4.5 mmol/L (-2.0-2.0); Blood Gas Allen Test Pos; HCO3 ABG 20.6 mmol/L (22-26); PO2 ABG 45.8 mmHg (80.0-100.0)
--- NOTE | 2019-11-24 13:56 | PC.NURSE ---
AMA Patient signs he wants to leave AMA. Wants no visitors and deny that he was here. Dr. Chen notified.
--- NOTE | 2019-11-24 14:03 | PC.NURSE ---
Patient becoming agitated. Physician notified. Security called.
--- NOTE | 2019-11-24 15:00 | PC.NURSE ---
VALERIO signed. Patient having hard time finding a ride home.
--- NOTE | 2019-11-24 15:23 | PC.NURSE ---
Fentanyl gtt waste: 8.5ml plus tubing. witnessed by Taina Rothman RN.
--- NOTE | 2019-11-24 15:24 | PC.NURSE ---
Witnessed 8.5ml of Fentanyl wasted from IV bag and volume in tubing with charge nurse, Claudia MERCADO.
--- NOTE | 2019-11-24 16:23 | PC.NURSE ---
Pt provided AMA discharge information, discussed withpt. He verbalized understanding. Pt still unable to find transportation at this time, so pt remains in ICU 2.
--- NOTE | 2019-11-24 17:14 | PC.NURSE ---
Staying Patient's ride here to pick him up. Patient says he decided he wanted to stay. Dr. Chen called and notified. Orders placed. Will restart IV and place on monitor.
--- NOTE | 2019-11-24 17:31 | PC.NURSE ---
AMA again Pt friend, Troy Parrish [phone], called and stated he was here to pick patient up. Pt again requesting to leave. Patient and belongings wheeled to ED exit to [employer] car driven by friend. Patient AAOx4, understands risks of leaving, understands to call 911 and return to ED, preferred no driving for a day or two and not to return to work until feeling better. Patient and friend voice understanding. Belongings with pt. Dr. Chen again notified.
--- NOTE | 2019-11-24 18:27 | PM.DCS ---
Discharge Providers Date of Admission: 11/22/19 03:02 Date of Discharge: November 24, 2019 Attending Provider at Admission: Amador Balbuena MD Attending Provider at Discharge: Jordi Chen Diagnoses at Discharge Discharge Diagnosis (1) Methamphetamine use: Status: Acute (2) Rhabdomyolysis: Status: Acute Qualifiers: Rhabdomyolysis type: non-traumatic Qualified Code(s): M62.82 - Rhabdomyolysis (3) Pneumonia: Status: Acute (4) Microscopic hematuria: Status: Acute Reason for Visit Reason for Visit: OD Hospital Course Hospital Course: 43-year-old gentleman current smoker, with history of methamphetamine use, with history of depression was dropped off at ER after taking a large amount of methamphetamine with a note informing of this as well as his age. For airway protection he was intubated. Was unresponsive, and subsequently with episodes of agitation. Noted to have mild rhabdomyolysis which was improving with hydration. Mild transaminitis on presentation resolved. His mental status gradually started to improve, and today showed significant provement actually following commands, answering questions. Was noted to have fever today, and noted to have pneumonia in right lower lobe, suspected due to aspiration. Noted to have microscopic hematuria on UA. Was started on antibiotic treatment with Zosyn. Even before he was extubating well we are progressing to weaning trial he was able to provide information as to what happened. He states that in fear that police were coming he took a large amount of methamphetamine tablets so was not to be caught with them. He requested that this information not be given out. He denies that he had any worsening depression, denies any suicidal or self-harm intention. He realizes that this is a life-threatening thing to do and next time he potentially may be risking . Encouraged him to abstain entirely from any illicit drug use and we discussed the risks. He otherwise was not surprised that he had encephalopathy, delirium and agitation as he did. He denies any hallucination, visual or auditory, denies any symptoms of paranoia. We discussed also about his other associate conditions including pneumonia with fever this morning, but also noted hematuria, as well as rhabdomyolysis, liver injury on presentation. He was okay with continue antibiotics. We were continuing to prepare for extubation, shortly after that he declared to the nurse that he will be leaving AMA as soon as he is extubated. I returned to speak with him again, we discussed again regards to concern that if he is leaving right after extubation he may not yet be ready, with active pneumonia, and with prolonged extubation he is at risk of progression to respiratory failure, progression of infection to sepsis, and potentially other undiagnosed conditions as cause of hematuria is unclear/possibly other infectious sources or other life-threatening conditions. We discussed concern that leaving parenterally may lead to any number of potentially life-threatening or disabling scenarios. He participated in the conversation and was able to verbalize and confirm the concerns, however, still was insistent that he would like to leave. He understood he may return to ER at any time, and is encouraged to do so to complete his assessment and work-up. He otherwise is encouraged to follow-up as soon as possible with his PCP, and continue follow-up as previously with [facility] [place] and to seek medical attention immediately in case there was ever change in his depression or in case of any some thoughts of self-harm or SI.. 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 He was generally weak after several days of intubation, and initially transiently changed his mind about staying. Transfer arrangement was started to medical floor, as well as CT renal stone was ordered, however, shortly after that I was notified that he left. Physical Exam Const: COMMON NORMALS: no acute distress and patient oriented x3 GENERAL APPEARANCE: comfortable OTHER: Awake, alert, with dysphonia, but communicating thoughts well. Generally somewhat weak after extubation, but visibly starts rummaging through his belongings after they are handed to him after extubation, and making plans about leaving the hospital. HENMT: COMMON NORMALS: oropharynx normal Neck/C-Spine: COMMON NORMALS: no JVD Resp: COMMON NORMALS: normal respiratory effort and clear to auscultation bilaterally AUSCULTATION: clear to auscultation bilaterally Cardio: COMMON NORMALS: no JVD, regular rhythm, S1 normal heart sound present, S2 normal heart sound present and No murmurs present (Cardio) RHYTHM: regular rhythm HEART SOUNDS: S1 normal heart sound present and S2 normal heart sound present GI: COMMON NORMALS: Normal to inspection, nondistended, normoactive bowel sounds present, Soft to palpation and non-tender PALPATION: Yes Soft to palpation Extremity: COMMON NORMALS: no joint enlargement and no pedal edema Neuro: COMMON NORMALS: patient oriented x3 Psych: COMMON NORMALS: cooperative, normal affect, denies hallucinations, denies homicidal ideation and denies suicidal ideation APPEARANCE: Yes unkempt ATTITUDE: Yes calm SPEECH: Yes rapid MOOD & AFFECT: Yes euthymic mood THOUGHT CONTENT: Yes Normal thought content present, No Suicidality present, No delusions, No Hallucination(s) present and No Ideas of reference present (thought content) JUDGEMENT: Fair judgement present (Psych) (Understands that she may be risking respiratory failure, worsening illness, progression to sepsis, severe illness, . But still wants to leave AGAINST MEDICAL ADVICE.) Skin: OTHER: Several small lesions noted on the skin, including right wrist on anterior lateral surface which appears to be more recent. Small lesions 4 x 4 mm perhaps excoriated papules noted on left lower leg. I do not see injection segovia between the toes. Urinary Catheter Management^: Kim: Cath Placed During This Visit: yes, but has since been removed by the nurse Reason for Continuing Indwelling Catheter: Decision to DC Catheter Urinary Catheter Date of Insertion: 11/22/19 Urinary Catheter Time of Insertion: 02:42 Date Urinary Catheter Removed: 11/24/19 Time Urinary Catheter Discontinued: 14:45 Discharge Data Data Completed and Pending: Completed Studies During Hospitalization Category Date Time Status CT head wo con* 7 0450 Urgent Cat Scan 11/22/19 00:41 Completed XR chest 1V sonia ble [id number] Routine Exams 11/24/19 07:52 Completed XR chest 1V osnia ble [id number] Urgent Exams 11/22/19 00:41 Completed Pending at discharge Category Date Time Status Blood Culture Sta t Lab 11/24/19 10:21 Results Sputum Culture an d Gram Stain Stat Lab 11/23/19 22:19 Results Urine Culture Rou lana Lab 11/24/19 10:21 Received Labs from last 24 hours 11/24/19 11/24/19 11/24/19 12:49 10:22 10:21 WBC Corrected WBC RBC Hgb Hct MCV MCH MCHC RDW Plt Count MPV Gran % Neut % (Auto) Lymph % (Auto) Bryan % (Auto) Eos % (Auto) Baso % (Auto) Neut # (Auto) Lymph # (Auto) Bryan # (Auto) Eos # (Auto) Baso # (Auto) Absolute Gran (aut o) Nucleated RBC % (a uto) Nucleated RBCs # Specimen Type Sample Site ABG pH ABG pCO2 ABG pO2 ABG HCO3 ABG Base Excess Ray Test Hematocrit O2 Delivery Device Mechanical Rate FiO2 Tidal Volume PEEP Photographic Editor ID Sodium Potassium Chloride Carbon Dioxide Anion Gap BUN Creatinine GFR Calculation Glucose POC Glucose 60 Calculated Osmolal ity Calcium Total Bilirubin AST ALT Alkaline Phosphata se Total Protein Albumin Globulin Urine Color Other Urine Appearance Hazy A Urine pH 5 Ur Specific Gravit y 1.025 Urine Protein 1+ H Urine Glucose (UA) Norm Urine Ketones 3+ H Urine Blood 3+ H Urine Nitrate Negative Urine Bilirubin Neg Urine Urobilinogen 4 H Ur Leukocyte Annabella ase Negative Urine RBC >100 H Urine WBC 0-4 H Ur Squamous Epith Cells 0-4 H Amorphous Sediment 1+ Urine Bacteria 2+ H Urine Mucus 1+ Influenza Type A A g Negative Influenza Type B A g Negative SARS-CoV-2 Ag (Rap id) 11/24/19 11/24/19 11/24/19 09:20 08:44 06:20 WBC Corrected WBC RBC Hgb Hct MCV MCH MCHC RDW Plt Count MPV Gran % Neut % (Auto) Lymph % (Auto) Bryan % (Auto) Eos % (Auto) Baso % (Auto) Neut # (Auto) Lymph # (Auto) Bryan # (Auto) Eos # (Auto) Baso # (Auto) Absolute Gran (aut o) Nucleated RBC % (a uto) Nucleated RBCs # Specimen Type Sample Site ABG pH ABG pCO2 ABG pO2 ABG HCO3 ABG Base Excess Ray Test Hematocrit O2 Delivery Device Mechanical Rate FiO2 Tidal Volume PEEP Photographic Editor ID Sodium 140 Potassium 3.5 Chloride 111 H Carbon Dioxide 18 L Anion Gap 14.5 BUN 10 Creatinine 1.0 GFR Calculation 81.6 L Glucose 68 POC Glucose 61 Calculated Osmolal ity 284 L Calcium 7.8 L Total Bilirubin 0.5 AST 36 ALT 20 Alkaline Phosphata se 73 Total Protein 5.2 L Albumin 2.8 L Globulin 2.4 Urine Color Urine Appearance Urine pH Ur Specific Gravit y Urine Protein Urine Glucose (UA) Urine Ketones Urine Blood Urine Nitrate Urine Bilirubin Urine Urobilinogen Ur Leukocyte Annabella ase Urine RBC Urine WBC Ur Squamous Epith Cells Amorphous Sediment Urine Bacteria Urine Mucus Influenza Type A A g Influenza Type B A g SARS-CoV-2 Ag (Rap id) Negative 11/24/19 11/24/19 11/24/19 06:20 05:05 05:05 WBC 8.5 Cancelled Corrected WBC Cancelled RBC 3.48 L Cancelled Hgb 11.0 L Cancelled Hct 36.1 L Cancelled MCV 103.7 H Cancelled MCH 31.6 Cancelled MCHC 30.5 Cancelled RDW 13.6 Cancelled Plt Count 172 Cancelled MPV 10.9 H Cancelled Gran % Cancelled Neut % (Auto) 72.1 Cancelled Lymph % (Auto) 17.1 Cancelled Bryan % (Auto) 8.1 Cancelled Eos % (Auto) 1.9 Cancelled Baso % (Auto) 0.6 Cancelled Neut # (Auto) 6.10 Cancelled Lymph # (Auto) 1.5 Cancelled Bryan # (Auto) 0.7 Cancelled Eos # (Auto) 0.2 Cancelled Baso # (Auto) 0.1 Cancelled Absolute Gran (aut o) Cancelled Nucleated RBC % (a uto) 0 Cancelled Nucleated RBCs # 0.0 Cancelled Specimen Type Sample Site ABG pH ABG pCO2 ABG pO2 ABG HCO3 ABG Base Excess Ray Test Hematocrit O2 Delivery Device Mechanical Rate FiO2 Tidal Volume PEEP Photographic Editor ID Sodium Cancelled Potassium Cancelled Chloride Cancelled Carbon Dioxide Cancelled Anion Gap Cancelled BUN Cancelled Creatinine Cancelled GFR Calculation Cancelled Glucose Cancelled POC Glucose Calculated Osmolal ity Cancelled Calcium Cancelled Total Bilirubin Cancelled AST Cancelled ALT Cancelled Alkaline Phosphata se Cancelled Total Protein Cancelled Albumin Cancelled Globulin Cancelled Urine Color Urine Appearance Urine pH Ur Specific Gravit y Urine Protein Urine Glucose (UA) Urine Ketones Urine Blood Urine Nitrate Urine Bilirubin Urine Urobilinogen Ur Leukocyte Annabella ase Urine RBC Urine WBC Ur Squamous Epith Cells Amorphous Sediment Urine Bacteria Urine Mucus Influenza Type A A g Influenza Type B A g SARS-CoV-2 Ag (Rap id) 11/24/19 05:00 WBC Corrected WBC RBC Hgb Hct MCV MCH MCHC RDW Plt Count MPV Gran % Neut % (Auto) Lymph % (Auto) Bryan % (Auto) Eos % (Auto) Baso % (Auto) Neut # (Auto) Lymph # (Auto) Bryan # (Auto) Eos # (Auto) Baso # (Auto) Absolute Gran (aut o) Nucleated RBC % (a uto) Nucleated RBCs # Specimen Type Arterial Sample Site Brachial, right ABG pH 7.35 ABG pCO2 37.3 ABG pO2 45.8 L ABG HCO3 20.6 L ABG Base Excess -4.5 L Ray Test Pos Hematocrit 36.1 L O2 Delivery Device Vent Mechanical Rate 14.0 FiO2 30.0 Tidal Volume 0.55 PEEP 8.0 Photographic Editor ID Jh Sodium Potassium Chloride Carbon Dioxide Anion Gap BUN Creatinine GFR Calculation Glucose POC Glucose Calculated Osmolal ity Calcium Total Bilirubin AST ALT Alkaline Phosphata se Total Protein Albumin Globulin Urine Color Urine Appearance Urine pH Ur Specific Gravit y Urine Protein Urine Glucose (UA) Urine Ketones Urine Blood Urine Nitrate Urine Bilirubin Urine Urobilinogen Ur Leukocyte Annabella ase Urine RBC Urine WBC Ur Squamous Epith Cells Amorphous Sediment Urine Bacteria Urine Mucus Influenza Type A A g Influenza Type B A g SARS-CoV-2 Ag (Rap id) Vitals: Last Vital Signs Temp 98.7 F 11/24/19 08:57 Pulse 124 H 11/24/19 15:00 Resp 18 11/24/19 14:30 BP 118/72 11/24/19 14:30 Pulse Ox 93 11/24/19 14:30 Discharge Plan Discharge Patient Disposition: Left Against Medical Advice Condition: Stable Prescriptions: New amoxicillin-pot clavulanate [Augmentin] 875-125 mg tablet 1 tab PO BID Qty: 14 RF: 0 Referrals: Your, PCP [Other] [facility] [place] [facility] [Provider Group] - 1 week Activity Restrictions/Additional Instructions: Please note that you are leaving the hospital prematurely and you are leaving before work-up and treatment could be completed safely. You have active pneumonia, and this requires additional assessment and treatment after weaning off mechanical ventilatory support. You also had agitation and confusion after overdose of illicit substance, and as result also had muscle breakdown (rhabdomyolysis), liver injury, which may lead to multiple complications including kidney injury. You are also noted to have some blood in your urine at this time of unclear etiology. He had fever this morning, and apart from pneumonia may have other undiagnosed infection. Please note that leaving early with these conditions, and possibly other medical problems may lead to risk of undiagnosed medical problems may lead to risk of deterioration in your condition, and progressing to severe illness, disability or . You are encouraged to return to emergency department anytime if you change your mind, otherwise seek medical attention soon as possible with your primary care provider, and continue follow-up with other providers including [facility] [place]. If you ever experience worsening depression, any thoughts of self-harm/suicide ideation please seek medical attention without delay. Please make sure to complete course of antibiotic prescribed to you for pneumonia. Please avoid any illicit substance ingestion as this may lead to life-threatening adverse effects. Please work with your primary care provider further with regards to this as well as quitting smoking. Again please note you may return to the hospital anytime without repercussions for additional assessment and management. Discharge Date/Time: 11/24/19 17:30 Discharge Attestations Time Spent in Discharge Care*: greater than 30 min Quality Metrics Clinical Quality Measures During this hospital stay, did patient experience: None Coding Level of Care Code Acute Grey Percher for Bessyg Fwd Diagnoses Methamphetamine use F15.10 Rhabdomyolysis M62.82 Rhabdomyolysis type: non-traumatic Pneumonia J18.9 Microscopic hematuria R31.29
== END 2019-11-24 17:30 | disposition left against medical advice (07) | DRG 917 ==
LOC: ER 00:49 → ICU 03:19
PROVIDERS: Emergency Medicine; Student in an Organized Health Care Education/Training Program; Admitting Provider Internal Medicine; Visit Provider Internal Medicine
DX: T43.621A Poisoning by amphetamines, accidental (unintentional), initial encounter (principal); G92 Toxic encephalopathy; J69.0 Pneumonitis due to inhalation of food and vomit; F15.20 Other stimulant dependence, uncomplicated; M62.82 Rhabdomyolysis; F32.9 Major depressive disorder, single episode, unspecified; F17.210 Nicotine dependence, cigarettes, uncomplicated; Z53.29 Procedure and treatment not carried out because of patient's decision for other reasons; R31.29 Other microscopic hematuria
CPT/HCPCS: 12345; 31500; 36415; 36416; 36600; 51702; 70450; 71045; 80051; 80053; 80074; 80306; 80307; 81001; 81003; 82550; 82803; 82810; 82962; 83605; 83735; 83986; 84100; 84484; 85025; 86140; 87040; 87070; 87077; 87086; 87205; 87426; 87804; 87806; 93005; 94002; 94003; 94799; 96372; 96375; 99283; A4570; C9113; J0330; J1650; J2250; J2543; J2704; J3010; J3411; J3490; J7030

== ENCOUNTER 2019-11-25 01:38 | Inpatient (IN) | payer SELFPAY ==
[2019-11-25] VITALS (14 sets, daily range): BP systolic 97–134; BP diastolic 66–86; PULSE 68–111; RESP 16–28; TEMP 36.3–37.2; O2SAT 90–97; BMI 23.0
--- NOTE | 2019-11-25 01:55 | ECG_ITS ---
[facility] Test Date: 2019-11-25 Pat Name: Yoan Mallory Department: Room: Gender: Male Heart Specialist: : 1975 Requested By: Chaparrita Easley Order Number: [id number] Damien MD: Margie Crews M.D. Measurements Intervals [place] Rate: 106 P: 39 MI: 148 QRS: -25 QRSD: 94 T: 72 QT: 311 QTc: 414 Interpretive Statements SINUS TACHYCARDIA POSSIBLE ANTERIOR MYOCARDIAL INFARCTION , OF INDETERMINATE AGE [30 ms Q WAVE IN V3/V4, OR R < 0.2 mV IN V4] Compared to ECG 11/22/2019 09:39:27 Sinus rhythm no longer present Myocardial infarct finding still present Electronically Signed On 11-25-2019 19:37:57 CDT by Margie Crews M.D. [id number]
--- NOTE | 2019-11-25 01:55 | XRR_ITS ---
PROCEDURE INFORMATION: Exam: XR Chest, 1 View Exam date and time: 11/25/2019 2:46 AM Age: 43 years old Clinical indication: Shortness of breath; Additional info: SOB TECHNIQUE: Imaging protocol: XR of the chest Views: 1 view. COMPARISON: [place] XR chest 1V portable [id number] 11/24/2019 8:20 AM FINDINGS: Lungs: Question subtle airspace disease/atelectasis left retrocardiac region. Lungs are otherwise well aerated. Pleural space: Unremarkable. No pleural effusion. No pneumothorax. 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 Bones/joints: Unremarkable. XR/XR chest 1V portable [id number] IMPRESSION: 1. 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 Consider two-view chest versus CT. Adenopathy within the differential diagnosis. 2. Question subtle airspace disease/atelectasis left retrocardiac region. Lungs are otherwise well aerated.
--- NOTE | 2019-11-25 01:56 | W.ED.SOB ---
HPI - SOB/Dyspnea General: Chief Complaint: Shortness of Breath/Dyspnea Stated Complaint: Sob Time Seen by Provider: 11/25/19 01:40 Source: patient Mode of arrival: ambulatory Limitations: no limitations History of Present Illness: HPI Narrative: 43-year-old male who was seen here 2 days ago for overdose. Patient was in abated at that time and admitted to the ICU. Yesterday patient was extubated and signed out AMA. Tonight he states he started feeling very short of breath and having congestion and was quite anxious. Patient is quite anxious here with hypercapnia. Patient denies any fever. He denies any chest pain. Denies any worsening improving factors. Associated symptoms: Deny abdominal pain, chest pain, fever(s), nausea or vomiting Review of Systems Const: Denies: fever(s), chills, body aches or change in appetite Eyes: Denies: blurry vision or eye discomfort ENMT: Denies: throat pain or dental pain Card: Denies: chest pain Resp: Reports: dyspnea and wheezing GI: Denies: abdominal pain, nausea, vomiting or diarrhea : Denies: dysuria Musc: Denies: neck pain or back pain Skin/Breast: Denies: rash Neuro: Denies: headache(s) Psych: Reports: anxiety Ayaan/Lymph: Denies: easy bruising All/Imm: Denies: urticaria PFS ED PFSH: Medical History (Updated 11/25/19 @ 03:39 by Chaparrita Easley MD) Depression Methamphetamine use Tobacco dependency Social History Smoking and tobacco status: current every day smoker Physical Exam Const: COMMON NORMALS: patient oriented x3 and healthy appearing GENERAL APPEARANCE: anxious HENMT: COMMON NORMALS: normocephalic and atraumatic HEAD & SCALP: normocephalic and atraumatic Eye: COMMON NORMALS: Equal, round and reactive pupils present and EOMs intact bilaterally PUPIL: Yes Equal, round and reactive pupils present Neck/C-Spine: COMMON NORMALS: full ROM and supple Chest: COMMONS NORMALS: normal inspection of the chest and normal palpation of entire chest wall Resp: COMMON NORMALS: normal respiratory effort, No retractions, No use of accessory muscles and clear to auscultation bilaterally AUSCULTATION: clear to auscultation bilaterally and wheezes Cardio: COMMON NORMALS: regular rhythm and No murmurs present (Cardio) RATE: tachycardic RHYTHM: regular rhythm GI: COMMON NORMALS: Normal to inspection, nondistended, normoactive bowel sounds present, Soft to palpation, non-tender and no masses PALPATION: Yes Soft to palpation Extremity: COMMON NORMALS: normal to inspection and full ROM Neuro: COMMON NORMALS: patient oriented x3, moves all extremities and no focal motor deficits Psych: COMMON NORMALS: mental status grossly normal, Normal thought process present and cooperative MOOD & AFFECT: Yes anxious THOUGHT PROCESS: Normal thought process present Skin: COMMON NORMALS: no rashes or lesions noted and no wounds GENERAL SKIN EXAM: no rashes or lesions noted Course Vital Signs: Vital signs: Vital Signs Temperature 98.1 F 11/25/19 01:43 Pulse Rate 108 H 11/25/19 02:32 Respiratory Rate 20 H 11/25/19 02:32 Blood Pressure 123/75 11/25/19 02:32 Pulse Oximetry 90 11/25/19 01:43 MDM - SOB/Dyspnea MDM Narrative: Medical decision making narrative: Patient presents here with shortness of breath likely from pneumonia after being in abated and extubated. Patient left AMA yesterday. He does have a history of methamphetamine abuse. We will start him on antibiotics I spoke to hospitalist and will readmit him at this time. Lab Data: Labs: Lab Results 11/25/19 11/25/19 11/25/19 Range/Units 02:39 02:39 02:39 WBC 9.3 (4.0-10.0) 10^3/ uL RBC 3.24 L (4.1-5.3) 10^6/u L Hgb 10.2 L (11.7-16.6) g/dL Hct 31.6 L (42.0-52.0) % MCV 97.5 H D (80-94) fL MCH 31.5 (28.0-34.0) pg MCHC 32.3 D (30.0-36.0) g/dL RDW 12.7 (12.1-15.1) % Plt Count 156 (130-400) 10^3/c mm MPV 10.9 H (7.4-10.4) fL Neut % (Auto) 78.9 % Lymph % (Auto) 9.9 % [place] % (Auto) 9.2 % Eos % (Auto) 1.5 % Baso % (Auto) 0.4 % Neut # (Auto) 7.30 (1.8-7.7) 10^3/u L Lymph # (Auto) 0.9 (0.8-4.8) 10^3/u L [place] # (Auto) 0.9 (0.2-0.9) 10^3/u L Eos # (Auto) 0.1 (0.0-0.8) 10^3/u L Baso # (Auto) 0.0 (0.0-0.1) 10^3/u L Nucleated RBC % (a uto) 0 % Nucleated RBCs # 0.0 /100WBC PT 17.10 H (12.1-14.9) SECO NDS INR 1.35 H (0.8-1.2) Anion Gap 10.8 (5-19) Glucose 77 (65-115) mg/dL Total Bilirubin 0.8 (0.15-1.2) mg/dL ALT 24 (0-41) U/L Alkaline Phosphata se 61 (40-130) IU/L Globulin 2.1 (1.3-4.6) g/dL EKG Data^: EKG 1: Attestation: I personally reviewed and interpreted this EKG as follows: EKG Interpretation Date: 11/25/19 EKG interpretation time: 02:00 Interpretation: sinus tach hr [address] or t wave abnormalities qrs 94 qtc 373 Discharge Plan Discharge Patient Disposition: Admitted As Inpatient Clinical Impression: Methamphetamine use Pneumonia Qualifiers: Pneumonia type: due to unspecified organism Laterality: right Lung location: lower lobe of lung Qualified Code(s): J18.9 - Pneumonia, unspecified organism Condition: Stable Coding Level of Care Code ED Outside Repairer Special for g Fwd Exam Comprehensive
[2019-11-25 02:49] LABS: Basophils % 0.4 %; Eosinophils # 0.1 10^3/uL (0.0-0.8); Eosinophils % 1.5 %; Hematocrit 31.6 % (42.0-52.0); Hemoglobin 10.2 g/dL (11.7-16.6); Lymphocytes # 0.9 10^3/uL (0.8-4.8); Lymphocytes % 9.9 %; Mean Corpuscular HGB Conc 32.3 g/dL (30.0-36.0); Mean Corpuscular Hemoglobin 31.5 pg (28.0-34.0); Mean Corpuscular Volume 97.5 fL (80-94); Mean Platelet Volume 10.9 fL (7.4-10.4); Monocytes # 0.9 10^3/uL (0.2-0.9); Monocytes % 9.2 %; Neutrophils % 78.9 %; Nucleated Red Blood Cells % 0 %; Platelet Count 156 10^3/cmm (130-400); Red Blood Count 3.24 10^6/uL (4.1-5.3); Red Cell Distribution Width 12.7 % (12.1-15.1); White Blood Count 9.3 10^3/uL (4.0-10.0)
[2019-11-25 03:04] LABS: INR 1.35 (0.8-1.2)
[2019-11-25] MEDS: LORazepam 2 mg/mL INJ 1 mL 1 MG IVP (03:05)
[2019-11-25 03:26] LABS: Alanine Aminotransferase 24 U/L (0-41); Albumin Level 2.5 g/dL (3.5-5.2); Alkaline Phosphatase 61 IU/L (40-130); Anion Gap 10.8 (5-19); Aspartate Amino Transferase 56 U/L (0-40); Blood Urea Nitrogen 5 mg/dL (6-20); Calcium 6.3 mg/dL (8.5-10.5); Carbon Dioxide 17 mmol/L (22-29); Chloride 110 mmol/L (98-107); Globulin 2.1 g/dL (1.3-4.6); Glucose 77 mg/dL (65-115); NT Pro B Type Natriuretic Pept 1093 pg/mL (0-125); Osmolality Calculated 275 mOsm/kg (285-295); Sodium 135 mmol/L (136-145); Total Bilirubin 0.8 mg/dL (0.15-1.2); Total Protein 4.6 g/dL (6.6-8.7)
[2019-11-25] MEDS: piperacillin-tazobactam 3.375 GM in sodium chloride 0.9% (plus) 50 ML IV ×3 (03:35→19:26)
[2019-11-25] MEDS: ipratropium-albuterol 3 mL Neb INHALATION ×2 (03:40→20:13)
[2019-11-25 03:51] LABS: Potassium 2.8 mmol/L (3.5-5.1)
[2019-11-25 04:02] LABS: ABG PCO2 36.7 mmHg (35-45); ABG PH Result 7.38 (7.35-7.45); Arterial Blood Gas Hematocrit 35.4 % (42-52); Base Excess ABG -2.9 mmol/L (-2.0-2.0); Blood Gas Allen Test Pos; Blood Gas Operator Identificat MONRO; Blood Gas Sample Site Radial, left; Blood Gas Sample Type Arterial; HCO3 ABG 21.8 mmol/L (22-26); Oxygen Device NC; PO2 ABG 65.5 mmHg (80.0-100.0)
--- NOTE | 2019-11-25 04:14 | PC.NURSE ---
No RN available at this time for report- will wait for callback
[2019-11-25] MEDS: potassium chloride ER 10 mEq Tablet 40 MEQ PO (04:43)
--- NOTE | 2019-11-25 04:59 | P.HP_ITS ---
Providers/Chief Complaint Admitting Physician: Yarely Lynn MD Primary Care Provider: None Chief Complaint: Sob History of Present Illness Yoan Mallory is a 43 year old male with PMHx noted below, presents following recent admission during which time he required intubation due to acute respiratory failure secondary to methamphetamine overdose. Following extubation he promptly left AMA less than 24 hours ago. He is quite somnolent during my assessment in the ER so difficult to obtain details but it seems that he was having chest pain and increasing shortness of breath with productive cough. Due to anxiety he has received a dose of Ativan which is likely contributing to his somnolence. He is requiring 3 L nasal cannula, with noted low normal blood pressure, mild tachycardia, tachypnea. He has received a dose of vancomycin and Zosyn. Due to noted low potassium is received oral supplementation. Rest of his work-up shows normal white count at 9.3, hemoglobin of 10.2, potassium of 2.8, normal renal function, BNP of 1093, INR of 1.35, rapid COVID testing which was negative, chest x-ray which is indicative of right-sided pneumonia though official report is pending. He will require treatment of pneumonia with continued IV antibiotic therapy and close monitoring of his respiratory status so will require admission. Review of Systems Narrative: -difficult to obtain due to somnolence Const: Reports: chills Card: Reports: chest pain and dyspnea on exertion Resp: Reports: dyspnea and productive cough (yellow/clear sputum) Medications/Allergies Allergies Allergy/AdvReac Type Severity Reaction Status Date / Time clindamycin Allergy ALGY-Hives Verified 06/17/19 17:47 PFSH Acute PFSH: Medical History Depression Methamphetamine use Tobacco dependency Social History Smoking and tobacco status: current every day smoker Vitals/I&O/Wt Last Vital Signs Temp 98.1 F 11/25/19 01:43 Pulse 68 11/25/19 04:05 Resp 16 11/25/19 04:05 BP 120/67 11/25/19 04:05 Pulse Ox 97 11/25/19 04:05 Weight last 48 hrs Weight 74.843 kg Physical Exam Const: COMMON NORMALS: no acute distress GENERAL APPEARANCE: cooperative and comfortable OTHER: -somnolent HENMT: COMMON NORMALS: normocephalic, atraumatic, hearing grossly normal bilaterally and moist oral mucous membranes HEAD & SCALP: normocephalic and atraumatic Eye: COMMON NORMALS: Equal, round and reactive pupils present, EOMs intact bilaterally and conjunctivae normal CONJUNCTIVA: Yes conjunctivae normal PUPIL: Yes Equal, round and reactive pupils present Neck/C-Spine: COMMON NORMALS: full ROM GENERAL: Yes normal visual inspection and Yes trachea midline Resp: COMMON NORMALS: normal respiratory effort, No retractions, No use of accessory muscles and clear to auscultation bilaterally EFFORT & INSPECTION: Yes able to speak in complete sentences, Yes symmetric chest movement and No tachypneic AUSCULTATION: clear to auscultation bilaterally OTHER: -on 3 L NC Cardio: COMMON NORMALS: regular rate, regular rhythm, S1 normal heart sound present, S2 normal heart sound present and No murmurs present (Cardio) RATE: regular rate RHYTHM: regular rhythm HEART SOUNDS: S1 normal heart sound present and S2 normal heart sound present GI: COMMON NORMALS: Normal to inspection, nondistended, normoactive bowel sounds present, Soft to palpation and non-tender PALPATION: Yes Soft to pa lpation Extremity: COMMON NORMALS: normal to inspection, full ROM and no clubbing, cyanosis or edema; negative for no pedal edema Neuro: COMMON NORMALS: moves all extremities, no focal motor deficits and no sensory deficits noted SENSORIUM/ORIENTATION: Yes somnolent Psych: COMMON NORMALS: mental status grossly normal, Normal thought process present, cooperative, normal affect and speech normal SPEECH: Yes normal speech THOUGHT PROCESS: Normal thought process present Skin: COMMON NORMALS: no rashes or lesions noted, no jaundice, no petechiae and no mottling GENERAL SKIN EXAM: no rashes or lesions noted Data : 11/25/19 02:39 11/25/19 02:39 Micro: Microbiology 11/25/19 03:51 Blood Culture - Preliminary Blood SPECIMEN COLLECTED A&P Assessment and plan (1) Pneumonia: -Continued evidence of pneumonia on chest x-ray today, follow-up official report -Received dose of vancomycin and Zosyn in the ER; continue these broad-spectrum IV antibiotics for now. Previous concern for aspiration -Aspiration precautions -Intubated during previous admission secondary to overdose. Sputum culture obtained during that time pending, gram stain polymicrobial -currently requiring supplemental oxygen, wean as tolerated, not oxygen dependent at baseline -WBC wnl, ABG with noted hypoxia -monitor vital signs -monitor respiratory status Status: Acute Qualifiers: Laterality: right Lung location: lower lobe of lung Pneumonia type: due to unspecified organism Qualified Code(s): J18.9 - Pneumonia, unspecified organism (2) Methamphetamine use: -Noted during recent admission, required intubation due to acute respiratory failure Status: Acute Additional A&P Information -Chronic smoker -rhabdomyolysis, last [id number], repeat in AM; IVF hydration -Hypokalemia, replaced PO, continue to trend -regular diet as tolerated -DVT ppx with lovenox -Dispo: home -Code status: FULL code Attestations Medical Necessity Statement*: Yoan Mallory's hospital stay will require greater than 2 midnights for treatment of right-sided pneumonia requiring IV antibiotics, close monitoring of respiratory status given higher than baseline oxygen requirement. Time Spent in Patient Care: Greater than 35 minutes (>than 50% of time spent in counselling and/or direct pt care on unit) . Coding Level of Care Code Acute Podiatric Medicine Doctor for Chg Fwd Diagnoses Pneumonia J18.9 Laterality: right Lung location: lower lobe of lung Pneumonia type: due to unspecified organism Methamphetamine use F15.10
[2019-11-25] MEDS: vancomycin 1,000 MG in sodium chloride 0.9% 250 ML 250 MG IV (05:33)
[2019-11-25] MEDS: enoxaparin 40 mg/0.4 mL Syringe SUBCUT (05:33)
[2019-11-25] MEDS: sodium chlor 0.9% + KCl 40 mEq 40 MEQ/1,000 ML BAG 75 MEQ IV (07:41)
--- NOTE | 2019-11-25 15:29 | XRR_ITS ---
PROCEDURE INFORMATION: Exam: XR Left Elbow Exam date and time: 11/25/2019 3:55 PM Age: 43 years old Clinical indication: Pain; Elbow; Left; Additional info: Left arm pain TECHNIQUE: Imaging protocol: XR Left elbow. Views: Frontal, lateral, and oblique views. COMPARISON: No relevant prior studies available. FINDINGS: Bones/joints: No acute bony abnormality identified. Soft tissues: Antecubital and posterior soft tissue swelling. XR/XR elbow LT min 3V* [id number] IMPRESSION: 1. Antecubital and posterior soft tissue swelling. 2. No acute bony abnormality identified.
[2019-11-25] MEDS: HYDROcodone-acetaminophen 5-325 mg Tablet 1 TAB PO (15:43)
--- NOTE | 2019-11-25 17:43 | PM.PN ---
Subjective Subjective: Interval history: Yoan reports he feels little bit better but his left arm hurts. He is coughing. History and physical reviewed. Medications: Reviewed: Yes Vitals/I&O/Wt Last Vital Signs Temp 98.9 F 11/25/19 16:00 Pulse 99 11/25/19 16:00 Resp 28 H 11/25/19 16:00 BP 102/67 11/25/19 16:00 Pulse Ox 94 11/25/19 16:00 11/25/19 11/25/19 11/25/19 06:59 14:59 22:59 Intake Total 50 / 50 415.833 / 415.833 254.167 / 670.000 Balance 50 / 50 415.833 / 415.833 254.167 / 670.000 Weight last 48 hrs Weight 74.843 kg Weight 74.843 kg Physical Exam Narrative: EXAM NARRATIVE: General exam no apparent distress Cardiovascular regular rate and rhythm without murmur Lungs clear but with diminished breath sounds bilaterally Abdomen is soft, positive bowel sounds Extremities no cyanosis or clubbing. Left upper extremity has some edema, and there are some erythematous nodules possible early abscesses left inner arm and left outer forearm. Distal cap refill is intact. Data : 11/25/19 02:39 11/25/19 02:39 Micro: Microbiology 11/25/19 06:30 Blood Culture - Preliminary Blood SPECIMEN COLLECTED 11/25/19 03:51 Blood Culture - Preliminary Blood SPECIMEN COLLECTED A&P Assessment and plan (1) Pneumonia: Continue vancomycin, Zosyn Check sputum culture from this hospital stay as well. Await blood culture Oxygen has been weaned off Status: Acute Qualifiers: Laterality: right Lung location: lower lobe of lung Pneumonia type: due to unspecified organism Qualified Code(s): J18.9 - Pneumonia, unspecified organism (2) Methamphetamine use: Patient admits to methamphetamine use, with injection left upper extremity after discharge from hospital. Status: Acute Additional A&P Information Left upper extremity edema. Concern if abscess may be present. Check venous duplex as well as soft tissue ultrasound to rule out abscess. Tobacco dependency Hypokalemia. Supplement. Check magnesium level. History of rhabdo. Check CK. Elevated BNP, EKG with poor R wave progression. Check echocardiogram. Recent previous troponin negative. Full code Lovenox for DVT prophylaxis Attestations Medical Necessity Statement*: Needs continued hospitalization for IV antibiotics secondary to pneumonia. Time Spent in Patient Care: Greater than 35 minutes Coding Level of Care Code Acute Goodwill Ambassador for Chg Fwd Diagnoses Pneumonia J18.9 Laterality: right Lung location: lower lobe of lung Pneumonia type: due to unspecified organism Methamphetamine use F15.10
[2019-11-25 18:24] LABS: Magnesium 1.4 mg/dL (1.7-2.3)
[2019-11-25 18:31] LABS: Creatine Phosphokinase 1643 U/L (39-308)
--- NOTE | 2019-11-25 19:01 | PC.NURSE ---
DR. RUSH NOTIFIED OF ISSUES WITH PATIENT'S IV. ATTEMPTING TO START WITH ULTRASOUND. 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 DR. RSUH NOTIFIED OF PATIENT'S STATUS.
[2019-11-25] MEDS: sodium chloride 0.9% 1,000 ML 100 ML IV (19:26)
[2019-11-25] MEDS: magnesium sulfate premix 2 GM/50 ML PIGGYBACK IV (19:40)
--- NOTE | 2019-11-25 20:47 | PC.NURSE ---
Dr. Lynn notified of patient asking for something to help him sleep tonight. Also notified of patient not having any urine output during day shift. The bladder scanner is in biomed at this time, so unable to bladder scan patient. Patient states he doesn't feel like he needs to pee. Patient has fluids running at 100 ml/hr in IV. Ordered to straight cath x1 and notify doctor of amount of urine returned.
--- NOTE | 2019-11-25 21:03 | PC.NURSE ---
Nurse had asked patient to try to void prior to calling doctor and patient stated I don't have to go. When nurse went in room with supplies for straight cath and explained the procedure to the patient, the patient stated let me try to go first. Patient voided 800 ml of tea-colored urine into urinal. Dr. Lynn notified.
[2019-11-25] MEDS: zolpidem 5 mg Tablet PO (21:13)
[2019-11-25] MEDS: LORazepam 1 mg Tablet PO (23:13)
[2019-11-26] MEDS: piperacillin-tazobactam 3.375 GM in sodium chloride 0.9% (plus) 50 ML IV ×3 (02:49→19:55)
[2019-11-26 02:51] VITALS: BP 121/82; PULSE 25; RESP 18; TEMP 36.6; O2SAT 91
--- NOTE | 2019-11-26 02:54 | PC.NURSE ---
Dr. Lynn notified of patient having visual hallucinations at this time. Will monitor.
[2019-11-26] MEDS: enoxaparin 40 mg/0.4 mL Syringe SUBCUT (04:47)
[2019-11-26] MEDS: sodium chloride 0.9% 1,000 ML 100 ML IV ×2 (04:47→17:35)
[2019-11-26 04:54] LABS: Basophils % 0.4 %; Eosinophils # 0.2 10^3/uL (0.0-0.8); Eosinophils % 2.1 %; Hematocrit 32.4 % (42.0-52.0); Hemoglobin 10.8 g/dL (11.7-16.6); Lymphocytes % 13.8 %; Mean Corpuscular HGB Conc 33.3 g/dL (30.0-36.0); Mean Corpuscular Volume 96.1 fL (80-94); Mean Platelet Volume 11.5 fL (7.4-10.4); Monocytes # 0.8 10^3/uL (0.2-0.9); Neutrophils # 5.45 10^3/uL (1.8-7.7); Neutrophils % 72.4 %; Nucleated Red Blood Cells % 0 %; Platelet Count 179 10^3/cmm (130-400); Red Blood Count 3.37 10^6/uL (4.1-5.3); Red Cell Distribution Width 12.7 % (12.1-15.1); White Blood Count 7.5 10^3/uL (4.0-10.0)
[2019-11-26 05:21] LABS: Creatine Phosphokinase 693 U/L (39-308)
[2019-11-26 05:22] LABS: Anion Gap 10.5 (5-19); Blood Urea Nitrogen 4 mg/dL (6-20); Calcium 7.5 mg/dL (8.5-10.5); Carbon Dioxide 23 mmol/L (22-29); Chloride 103 mmol/L (98-107); Glomerular Filtration Rate 105.5 mL/min (90-130); Glucose 127 mg/dL (65-115); Osmolality Calculated 273 mOsm/kg (285-295); Potassium 3.5 mmol/L (3.5-5.1); Sodium 133 mmol/L (136-145)
--- NOTE | 2019-11-26 07:00 | USCV_ITS ---
Yoan Mallory Age: 43 Gender: M : 1975 Exam Date: 11/26/2019 06:59 Ordering Phys: Amador Balbuena MD Technologist: Darnell Arguello Exam Location: [facility] – [place] Indication: PAIN AND SWELLING HISTORY: Upper extremity edema. PROCEDURES: Venous duplex imaging was performed in only the left upper extremity. The following venous structures were evaluated: internal jugular vein, subclavian vein, axillary vein, and brachial veins. In addition, the basilic vein, cephalic vein, radial vein, and ulnar vein. FINDINGS: No evidence of deep vein thrombosis or superficial thrombophlebitis in the left upper extremity. CONCLUSIONS No evidence of thrombus of the left upper extremity veins. Jose Carlos Contreras MD (Electronically Signed) Final Date: 26 November 2019 16:27 S
--- NOTE | 2019-11-26 07:00 | USCV_ITS ---
Yoan Mallory Age: 43 Gender: M : 1975 Exam Date: 11/26/2019 06:45 Ordering Phys: Amador Balbuena MD Technologist: Darnell Arguello Exam Location: [facility] – [place] Indication: ELEVATED BNP, ABNORMAL EKG BP: 121 / 82 HR: 95 Rhythm: Sinus Technical Quality: Adequate MEASUREMENTS (Male / Female) Normal Values 2D ECHO LV Diastolic Diameter PLAX 4.9 cm 4.2 - 5.9 / 3.9 - 5.3 cm LV Systolic Diameter PLAX 3.7 cm IVS Diastolic Thickness 0.9 cm 0.6 - 1.0 / 0.6 - 0.9 cm IVS Systolic Thickness 1.4 cm LVPW Diastolic Thickness 1.3 cm 0.6 - 1.0 / 0.6 - 0.9 cm LVPW Systolic Thickness 1.0 cm LVOT Diameter 2.1 cm LV Ejection Fraction 2D Teich 48.3 % LV Ejection Fraction MOD 2C 65.3 % LV Ejection Fraction 2C AL 64.8 % LA Diameter 3.9 cm LA Width 3.9 cm LA Height 4.5 cm RA Width 4.2 cm RA Height 4.9 cm Aorta at Sinotubular Diameter 0.8 cm M-MODE LV Diastolic Diameter MM 5.3 cm 4.2 - 5.9 / 3.9 - 5.3 cm LV Systolic Diameter MM 3.5 cm LV Ejection Fraction MM Teich 63.9 % IVS Diastolic Thickness MM 1.1 cm 0.6 - 1.0 / 0.6 - 0.9 cm IVS Systolic Thickness MM 1.7 cm LVPW Diastolic Thickness MM 1.5 cm 0.6 - 1.0 / 0.6 - 0.9 cm LVPW Systolic Thickness MM 1.7 cm RV Diastolic Diameter MM 1.9 cm Aortic Annulus Diameter 3.5 cm LA Ao Ratio MM 1.1 MV E Point Septal Separation 0.7 cm DOPPLER AV Peak Velocity 124.0 cm/s LVOT Peak Velocity 106.0 cm/s AV Area Cont Eq vti 2.8 cm squared AV Area Cont Eq pk 2.9 cm squared MV Area PHT 5.0 cm squared Mitral E to A Ratio 0.8 MV E' Velocity 12.0 cm/s Mitral E to MV E' Ratio 5.5 Mitral E to LV E' Lateral Ratio 5.8 Mitral E to LV E' Septal Ratio 5.3 TR Peak Velocity 137.0 cm/s TR Peak Gradient 7.6 mmHg TV Peak E Velocity 105.0 cm/s Right Atrial Pressure 3.0 mmHg Pulmonary Artery Systolic Pressu 10.5 mmHg FINDINGS Left Ventricle Normal left ventricular size, systolic function and wall thickness. LVEF is 50-55%. Mild hypokinesis of the basal inferior wall is noted. Normal left ventricular wall thickness. Normal diastolic filling pattern. Right Ventricle The right ventricle is normal in size and function. Right Atrium The right atrium is normal in size. Left Atrium The left atrium is normal in size. Mitral Valve Structurally normal mitral valve without significant stenosis or prolapse. There is no mitral regurgitation. Aortic Valve Structurally normal aortic valve without significant sclerosis or stenosis. There is no aortic regurgitation. Tricuspid Valve Structurally normal tricuspid valve without significant stenosis or regurgitation. Insufficient TR jet to calculate RVSP. Normal RA pressure Pulmonic Valve Structurally normal pulmonic valve without significant stenosis. There is no pulmonic regurgitation. Pericardium Normal pericardium without effusion. Aorta Normal ascending aorta dimension. CONCLUSIONS LV systolic function is normal with LVEF of 50-55% Diastolic function is normal John Medina MD (Electronically Signed) Final Date: 26 November 2019 08:21 S
--- NOTE | 2019-11-26 07:00 | US_ITS ---
WS: [id number] ULTRASOUND SOFT TISSUES LEFT upper extremity. HISTORY: Left upper extremity, check for abscess COMPARISON: None available. TECHNIQUE: 2-D and color Doppler imaging is submitted. Ultrasound is directed to the medial LEFT upper extremity. There is a large amount of soft tissue turner ma. There is no focal collection or increased vascularity. US/US soft tissue/extremity [id number] IMPRESSION: Subcutaneous edema without a focal abscess identified LEFT upper extremity.
[2019-11-26 07:17] VITALS: BP 129/85; PULSE 92; RESP 13; TEMP 37; O2SAT 95
--- NOTE | 2019-11-26 08:22 | P.PN_ITS ---
Subjective Subjective: Interval history: Yoan reports he hurts when he coughs. He is coughing up some colored sputum. His arm still hurts as well but is less swollen. Medications: Reviewed: Yes Vitals/I&O/Wt Last Vital Signs Temp 98.6 F 11/26/19 07:17 Pulse 92 11/26/19 07:17 Resp 13 11/26/19 07:17 BP 129/85 11/26/19 07:17 Pulse Ox 95 11/26/19 07:17 11/25/19 11/26/19 11/26/19 22:59 06:59 14:59 Intake Total 1707.500 / 2123.333 957.083 / 3080.416 Output Total 800 / 800 1300 / 2100 Balance 907.500 / 1323.333 -342.917 / 980.416 Weight last 48 hrs Weight 75.659 kg Weight 74.843 kg Weight 74.843 kg Physical Exam Narrative: EXAM NARRATIVE: General exam no apparent distress Cardiovascular regular rate and rhythm without murmur Lungs clear but with diminished breath sounds bilaterally Abdomen is soft, positive bowel sounds Extremities no cyanosis or clubbing. Left upper extremity provement and edema., and there are some erythematous nodules possible early abscesses left inner arm and left outer forearm. These overall seem about the same to me. Distal sensation, cap refill brisk. Data : 11/26/19 04:25 11/26/19 04:25 Micro: Microbiology 11/25/19 06:30 Blood Culture - Preliminary Blood NEGATIVE TO DATE 11/25/19 03:51 Blood Culture - Preliminary Blood NEGATIVE TO DATE A&P Assessment and plan (1) Pneumonia: Continue vancomycin, Zosyn Await sputum and blood cultures Oxygen has been weaned off Add incentive spirometry Up in chair today, ambulate if possible Status: Acute Qualifiers: Laterality: right Lung location: lower lobe of lung Pneumonia type: due to unspecified organism Qualified Code(s): J18.9 - Pneumonia, unspecified organism (2) Methamphetamine use: Patient admits to methamphetamine use, with injection left upper extremity after discharge from hospital. Status: Acute Additional A&P Information Left upper extremity edema. Concern if abscess may be present. Awaiting venous duplex as well as soft tissue ultrasound Tobacco dependency Hypokalemia. Resolved Rhabdomyolysis, improving. With CK rapidly improving no need for repeat level tomorrow. Elevated BNP, EKG with poor R wave progression. Await echocardiogram. Recent previous troponin negative. Full code Lovenox for DVT prophylaxis Attestations Medical Necessity Statement*: Needs continued IV antibiotics for pneumonia Coding Level of Care Code Acute Global Category Manager for g Fwd Diagnoses Pneumonia J18.9 Laterality: right Lung location: lower lobe of lung Pneumonia type: due to unspecified organism Methamphetamine use F15.10
--- NOTE | 2019-11-26 10:13 | PC.NURSE ---
PATIENT UP TO CHAIR AND ENCOURAGED TO STAY IN CHAIR MOST OF THE DAY WITH LEGS ELEVATED. PATIENT REMAINED IN THE CHAIR FOR APPROXIMATELY ONE AND A HALF HOURS AND REQUESTED THE AID HELP HIM BACK TO BED.
--- NOTE | 2019-11-26 11:21 | PC.CHAP ---
Pastoral Care Encounter/Spiritual Assessment Type of Contact [] Declined wool scourer visit [] Patient/Family/Request visit [] Outpatient visit [] Follow-up visit [] Physician referral [] Code/Alert [x] Routine visit [] Staff referral [] Actively dying [] Patient sleeping [] Family support [] [] Out of room [] Palliative care [] [x] Receiving care in room [] Pre-surgical visit [] Trauma [] Long length of stay [] ICU visit [] Other: Relational/Emotional Strength [] Patient feels connected with others/family/visitors/staff [x] Distress [] Loneliness/isolation [] Abandonment Spirituality of Patient [x] Person of Tiffanie [] Attends Restorationism of their Tiffanie [x] Believes in Prayer [] Reads Bible or Buddhist materials [] There are Spiritual issues to be addressed Logistic Manager Interventions [x] Prayer [x] Active listening [x] Non-anxious presence [x] Spiritual/emotional support [] Crisis/trauma care [x] Spiritual counseling [] Bereavement support [] Provided bereavement packet [] Provided Bible/devotional materials [] Provided toy/stuffed animal, coloring book to patient or family member [] Provided Communion [] Anointing/[place] [] Salvation [x] Completed spiritual assessment [] Other: Impact on Illness or Injury [] Angry [] Fearful [x] Anxious [] Often cries [] Exhaustion [x] Unable to work [] Unable to attend yazdanism [] Unable to walk/stand [] Unable to read [] Unable to drive [] Unable to eat/drink [] Unable to sleep [] Unable to be with family [] Patient intubated [] Other: Summary Was having problems breathing, not able to communicate what needs to be done, has a good attitude, probalaby shea need more testingl Time spent with patient 10 mins
[2019-11-26 11:46] VITALS: BP 116/80; PULSE 84; RESP 22; TEMP 36.8; O2SAT 94
--- NOTE | 2019-11-26 13:06 | PC.RESP ---
Smoking Cessation information and a schedule of classes to patient.
[2019-11-26 15:23] VITALS: BP 134/83; PULSE 88; RESP 18; TEMP 36.9; O2SAT 97
--- NOTE | 2019-11-26 17:25 | PC.NURSE ---
PATIENT'S VANC TROUGH WAS DUE AT 1300, NURSING, LAB AND RESPIRATORY THERAPY HAVE MADE MULTIPLE ATTEMPTS TO OBTAIN THIS BLOOD SAMPLE, HOWEVER, THE ATTEMPTS HAVE BEEN UNSUCCESSFUL. DR. RUSH VERBALLY ORDERED FOR THIS NURSE AND LAB TO TRY AND OBTAIN THE SAMPLE FROM THE PATIENT'S VEINS IN HIS FEET. THESE ATTEMPTS WERE UNSUCCESSFUL, WERE THE ATTEMPTS AT ARTERIAL BLOOD DRAWS BY RESPIRATORY THERAPY. THE PATIENT NOW REFUSES ANYMORE BLOOD DRAW ATTEMPTS. DR. RUSH NOTIFIED. ORDERED TO RETIME AND HANG DOSE OF VANCOMYCIN THIS EVENING AND ASK PHARMACY TO PLEASE ORDER WHEN A NEW VANC LEVEL SHOULD BE DRAWN. NOTIFIED MOISÉS IN PHARMACY.
[2019-11-26] MEDS: LORazepam 1 mg Tablet PO (19:55)
[2019-11-26 20:00] VITALS: BP 125/85; PULSE 95; RESP 23; O2SAT 92
--- NOTE | 2019-11-26 20:07 | PC.NURSE ---
Dr. Lynn notified of patient asking for nicotene gum. Patient states he smokes 2 packs a day.
[2019-11-26] MEDS: cetylpyridinium Lozenge 1 EACH MUCOUS MEM ×2 (21:02→22:33)
[2019-11-26] MEDS: nicotine 21 mg Patch 1 PATCH TRANSDERMA (21:02)
[2019-11-26] MEDS: nicotine 2 mg Gum BUCCAL ×2 (21:02→22:30)
--- NOTE | 2019-11-26 21:13 | PC.NURSE ---
Dr. Lynn notified of patient asking for something for a sore throat.
[2019-11-26] MEDS: zolpidem 5 mg Tablet PO (22:30)
[2019-11-27] VITALS (9 sets, daily range): BP systolic 122–136; BP diastolic 8–93; PULSE 74–102; RESP 16–87; TEMP 36.4–36.9; O2SAT 21–97
[2019-11-27] MEDS: nicotine 2 mg Gum BUCCAL ×8 (00:23→20:19)
[2019-11-27] MEDS: cetylpyridinium Lozenge 1 EACH MUCOUS MEM ×5 (02:34→22:33)
[2019-11-27] MEDS: HYDROcodone-acetaminophen 5-325 mg Tablet 1 TAB PO ×3 (02:39→20:20)
--- NOTE | 2019-11-27 02:41 | PC.NURSE ---
Patient's IV in right AC infiltrated and was removed with catheter intact. ER nurse came to start new IV in left AC 18 gauge with ultrasound machine. Will monitor.
[2019-11-27] MEDS: piperacillin-tazobactam 3.375 GM in sodium chloride 0.9% (plus) 50 ML IV (04:09)
[2019-11-27] MEDS: LORazepam 1 mg Tablet PO ×2 (04:09→22:14)
[2019-11-27] MEDS: enoxaparin 40 mg/0.4 mL Syringe SUBCUT (04:09)
--- NOTE | 2019-11-27 04:52 | PC.NURSE ---
Dr. Lynn notified of lab being unable to get patient's morning labs, including vanc trough after multiple attempts.
--- NOTE | 2019-11-27 06:56 | PC.NURSE ---
Patient pulled IV out by accident. Catheter was intact. Fluids paused at this time until new IV can be inserted.
--- NOTE | 2019-11-27 07:39 | PC.NURSE ---
pt resting in bed. assessment performed. no needs identified at this time. call light within reach. will continue to monitor.
[2019-11-27] MEDS: nicotine 21 mg Patch 1 PATCH TRANSDERMA (09:34)
--- NOTE | 2019-11-27 09:46 | P.PN_ITS ---
Subjective Subjective: Interval history: no acute events overnight. Patient is hemodynamically stable. He denies any active complaints. Comfortably sleeping in the bed. His IV got infiltrated so he have missed few doses of IV antibiotic. Ultrasound soft tissue and ultrasound Doppler vein is negative any abscess / DVT. Medications: Reviewed: Yes Vitals/I&O/Wt Last Vital Signs Temp 98.4 F 11/27/19 04:00 Pulse 81 11/27/19 08:54 Resp 17 11/27/19 08:54 BP 130/82 11/27/19 04:00 Pulse Ox 95 11/27/19 08:54 11/26/19 11/27/19 11/27/19 22:59 06:59 14:59 Intake Total 660 / 2150 1875.208 / 4025.208 Output Total 2950 / 4500 1550 / 6050 Balance -2290 / -2350 325.208 / -2024.792 Weight last 48 hrs Weight 85.865 kg Weight 75.659 kg Physical Exam Const: COMMON NORMALS: patient oriented x3 HENMT: COMMON NORMALS: normocephalic, atraumatic, hearing grossly normal bilaterally and external ears normal HEAD & SCALP: normocephalic and atraumatic EXTERNAL EAR: Yes external ears normal Eye: COMMON NORMALS: no scleral icterus GENERAL EYE: appearance normal, both eyes and all related structures Chest: COMMONS NORMALS: normal inspection of the chest and normal palpation of entire chest wall CHEST: Yes Symmetrical chest wall rise Resp: COMMON NORMALS: normal respiratory effort, No retractions and No use of accessory muscles EFFORT & INSPECTION: Yes symmetric chest movement OTHER: Minimal bilateral basal crackles are present Cardio: COMMON NORMALS: regular rate, regular rhythm, S1 normal heart sound present, S2 normal heart sound present, No gallops present (Cardio), No murmurs present (Cardio), No rub (Cardio) and Peripheral pulses 2+ throughout RATE: regular rate RHYTHM: regular rhythm HEART SOUNDS: S1 normal heart sound present and S2 normal heart sound present PERIPHERAL PULSES: Peripheral pulses 2+ throughout GI: COMMON NORMALS: Normal to inspection, nondistended, normoactive bowel sounds present, Soft to palpation, non-tender, No hepatosplenomegaly present and no masses AUSCULTATION: Yes normoactive bowel sounds PALPATION: Yes Soft to palpation and Yes No hepatosplenomegaly present RECTAL EXAM: Yes deferred : COMMON NORMALS: Yes no CVA tenderness BLADDER/KIDNEY EXAM: Yes no CVA tenderness Back/Pelvis: COMMON NORMALS: no CVA tenderness Extremity: COMMON NORMALS: no clubbing, cyanosis or edema and no pedal edema Neuro: COMMON NORMALS: patient oriented x3 Data : 11/26/19 04:25 11/27/19 14:07 Micro: Microbiology 11/25/19 06:30 Blood Culture - Preliminary Blood NEGATIVE TO DATE A&P Assessment and plan (1) Pneumonia: Continue vancomycin, Zosyn Oxygen has been weaned off Add incentive spirometry Allow patient to ambulate. Status: Acute Qualifiers: Laterality: right Lung location: lower lobe of lung Pneumonia type: du e to unspecified organism Qualified Code(s): J18.9 - Pneumonia, unspecified organism (2) Methamphetamine use: Patient admits to methamphetamine use, with injection left upper extremity after discharge from hospital. Status: Acute Additional A&P Information Left upper extremity edema. : No abscess based on ultrasound soft. No DVT based on duplex venous ultrasound. Tobacco dependency Imaging study: 2D echo: Normal LVEF of 50% - 55%. Normal diastolic function. Mild LV basal and inferior wall hypokinesia. RV is normal in size and function. RA and LA is normal in size. Mitral valve is normal. Tricuspid valve is normal. Insufficient TR jet to calculate RVSP. Pulmonary valve is normal. No pericardial effusion. Ultrasound left upper extremity: No evidence of abscess. There is large amount of soft tissue edema Venous Doppler lt upper extremity: No evidence of DVT. Head CT without contra: No acute intracranial pathology Microbiological study: Blood culture drawn on 11/24: is negative Urine culture no growth EKG: Sinus tachycardia. Full code Lovenox for DVT prophylaxis Attestations Medical Necessity Statement*: Needs to be in hospital to continue IV antibiotics for his pneumonia. Coding Level of Care Code Acute Supervisor [employer] for [facility] Fwd Exam Comprehensive Diagnoses Pneumonia J18.9 Laterality: right Lung location: lower lobe of lung Pneumonia type: due to unspecified organism Methamphetamine use F15.10
[2019-11-27] MEDS: sodium chloride 0.9% 1,000 ML 100 ML IV (11:19)
--- NOTE | 2019-11-27 14:00 | PC.NURSE ---
pt iv removed due to leaking. aware. will consider picc or E. J.
[2019-11-27 14:37] LABS: Blood Urea Nitrogen 4 mg/dL (6-20); Calcium 8.3 mg/dL (8.5-10.5); Carbon Dioxide 21 mmol/L (22-29); Chloride 104 mmol/L (98-107); Glucose 132 mg/dL (65-115); Osmolality Calculated 280 mOsm/kg (285-295); Sodium 136 mmol/L (136-145)
[2019-11-27 14:38] LABS: Vancomycin Random 10.7 ug/mL (20.0-40.0)
[2019-11-27 14:42] LABS: Anion Gap 15.1 (5-19); Potassium 4.1 mmol/L (3.5-5.1)
[2019-11-27 15:02] LABS: Creatine Phosphokinase 218 U/L (39-308)
--- NOTE | 2019-11-27 15:59 | PC.NURSE ---
Dr. Cabral on unit verbal orders given for zyvox 600mg Q12 hours and levofloxin 750mg daily
--- NOTE | 2019-11-27 16:22 | PC.NURSE ---
zosyn and vancomycin not given due to no iv access. dr hernandez in order to change to oral antibiotics.
[2019-11-27] MEDS: linezolid 600 mg Tablet PO (16:32)
[2019-11-27] MEDS: zolpidem 5 mg Tablet PO (20:20)
--- NOTE | 2019-11-27 21:16 | PC.NURSE ---
Patient resting in bed watching TV at this time. Patient has been cooperative with staff and cares. Patient did report lower back pain and PRN pain medication was administered per orders. Patient does not have any IV access at this time so some IV antibiotics have been missed but provider switched meds to PO route, provider is aware.
--- NOTE | 2019-11-28 00:13 | PC.NURSE ---
Doing 0000 rounds, nurse stuck head into patients room and asked if patient was doing ok? Patient yelled what now? you were just in here 15 minutes ago! Nurse replied that self hadn't been in room for a little while and then patient stated the person doing vitals was, communication between staff is what is needed Nurse apologized for disturbing patient. Continue care
--- NOTE | 2019-11-28 01:53 | PC.NURSE ---
Patient refuses rounding hourly, patient wants to be left alone to sleep at night.
[2019-11-28 04:00] VITALS: BP 116/73; PULSE 79; RESP 17; O2SAT 97
[2019-11-28] MEDS: linezolid 600 mg Tablet PO ×2 (04:22→16:15)
[2019-11-28] MEDS: enoxaparin 40 mg/0.4 mL Syringe SUBCUT (04:22)
[2019-11-28] MEDS: cetylpyridinium Lozenge 1 EACH MUCOUS MEM ×4 (04:28→18:25)
--- NOTE | 2019-11-28 04:38 | PC.NURSE ---
Patient more cooperative with staff this rounding. Let staff perform vitals and administer scheduled medications. Continue care
[2019-11-28] MEDS: levoFLOXacin 750 mg Tablet PO (05:27)
[2019-11-28 07:02] VITALS: BP 117/74; PULSE 88; RESP 15; TEMP 36.4; O2SAT 97
[2019-11-28] MEDS: nicotine 2 mg Gum BUCCAL ×2 (08:37→18:25)
[2019-11-28] MEDS: HYDROcodone-acetaminophen 5-325 mg Tablet 1 TAB PO ×2 (08:37→20:21)
[2019-11-28] MEDS: nicotine 21 mg Patch 1 PATCH TRANSDERMA (08:37)
[2019-11-28 11:07] VITALS: BP 120/64; PULSE 73; RESP 18; TEMP 36.6; O2SAT 96
[2019-11-28] MEDS: ALPRAZolam 0.5 mg Tablet PO (12:14)
--- NOTE | 2019-11-28 13:02 | PM.PN ---
Subjective Subjective: Interval history: No acute event overnight. There is some swelling swelling in the right right upper extremity, which is likely due to IV infiltrate. Vitals have been stable. Labs have not not been drawn because he is hard stick. Medications: Reviewed: Yes Vitals/I&O/Wt Last Vital Signs Temp 97.8 F 11/28/19 11:07 Pulse 73 11/28/19 11:07 Resp 18 11/28/19 11:07 BP 120/64 11/28/19 11:07 Pulse Ox 96 11/28/19 11:07 11/27/19 11/28/19 11/28/19 22:59 06:59 14:59 Intake Total 903.333 / 918.125 120 / 1038.125 Output Total 1800 / 2800 Balance -896.667 / -1881.875 120 / -1761.875 Weight last 48 hrs Weight 85.865 kg Physical Exam Const: COMMON NORMALS: patient oriented x3 HENMT: COMMON NORMALS: normocephalic, atraumatic, hearing grossly normal bilaterally and external ears normal HEAD & SCALP: normocephalic and atraumatic EXTERNAL EAR: Yes external ears normal Eye: COMMON NORMALS: no scleral icterus GENERAL EYE: appearance normal, both eyes and all related structures Chest: COMMONS NORMALS: normal inspection of the chest and normal palpation of entire chest wall CHEST: Yes Symmetrical chest wall rise Resp: COMMON NORMALS: normal respiratory effort, No retractions, No use of accessory muscles and clear to auscultation bilaterally EFFORT & INSPECTION: Yes symmetric chest movement AUSCULTATION: clear to auscultation bilaterally Cardio: COMMON NORMALS: regular rate, regular rhythm, S1 normal heart sound present, S2 normal heart sound present, No gallops present (Cardio), No murmurs present (Cardio), No rub (Cardio) and Peripheral pulses 2+ throughout RATE: regular rate RHYTHM: regular rhythm HEART SOUNDS: S1 normal heart sound present and S2 normal heart sound present PERIPHERAL PULSES: Peripheral pulses 2+ throughout GI: COMMON NORMALS: Normal to inspection, nondistended, normoactive bowel sounds present, Soft to palpation, non-tender, No hepatosplenomegaly present and no masses AUSCULTATION: Yes normoactive bowel sounds PALPATION: Yes Soft to palpation and Yes No hepatosplenomegaly present RECTAL EXAM: Yes deferred Extremity: COMMON NORMALS: no clubbing, cyanosis or edema and no pedal edema NARRATIVE EXTREMITY EXAM: Right upper extremity swelling is present. Likely secondary to IV infiltration. Pulses and sensations are intact both upper extremity. Neuro: COMMON NORMALS: patient oriented x3 Data : 11/26/19 04:25 11/27/19 14:07 A&P Assessment and plan (1) Pneumonia: DisContinue vancomycin, Zosyn. Continue with Zyvox and levofloxacin Oxygen has been weaned off Add incentive spirometry Allow patient to ambulate. Status: Acute Qualifiers: Laterality: right Lung location: lower lobe of lung Pneumonia type: due to unspecified organism Qualified Code(s): J18.9 - Pneumonia, unspecified organism (2) Methamphetamine use: Patient admits to methamphetamine use, with injection left upper extremity after discharge from hospital. Status: Acute Additional A&P Information Left upper extremity edema. : No abscess based on ultrasound soft. No DVT based on duplex venous ultrasound. Tobacco dependency Imaging study: 2D echo: Normal LVEF of 50% - 55%. Normal diastolic function. Mild LV basal and inferior wall hypokinesia. RV is normal in size and function. RA and LA is normal in size. Mitral valve is normal. Tricuspid valve is normal. Insufficient TR jet to calculate RVSP. Pulmonary valve is normal. No pericardial effusion. Ultrasound left upper extremity: No evidence of abscess. There is large amount of soft tissue edema Venous Doppler lt upper extremity: No evidence of DVT. Head CT without contra: No acute intracranial pathology Microbiological study: Blood culture drawn on 11/24: is negative Urine culture no growth EKG: Sinus tachycardia. Full code Lovenox for DVT prophylaxis Attestations Medical Necessity Statement*: Patient needs few more days of antibiotic for his pneumonia. Coding Level of Care Code Acute Sales Representative Facility Services for [facility] Fwd Diagnoses Pneumonia J18.9 Laterality: right Lung location: lower lobe of lung Pneumonia type: due to unspecified organism Methamphetamine use F15.10
[2019-11-28 19:17] VITALS: BP 121/78; PULSE 73; RESP 24; TEMP 36.9; O2SAT 98
[2019-11-28] MEDS: LORazepam 1 mg Tablet PO (20:22)
[2019-11-28] MEDS: zolpidem 5 mg Tablet PO (20:22)
[2019-11-28 20:23] VITALS: PULSE 83; RESP 16; O2SAT 96
[2019-11-28 23:56] VITALS: BP 113/68; PULSE 65; RESP 15; TEMP 36.7; O2SAT 100
[2019-11-29] MEDS: HYDROcodone-acetaminophen 5-325 mg Tablet 1 TAB PO (01:35)
[2019-11-29] MEDS: cetylpyridinium Lozenge 1 EACH MUCOUS MEM ×2 (01:35→07:31)
--- NOTE | 2019-11-29 01:55 | PC.NURSE ---
ASSUMED CARE AT BEGINNING OF SHIFT. REPORT RECEIVED FROM OFF GOING RN. PT RESTING IN BED, BUT C/O GEN BODY PAIN 10/25 PRN NORCO WAS GIVEN. BILATERAL ARMS WERE WARM TO TOUCH. WILL CONTINUE TO MONITOR.
[2019-11-29 03:21] VITALS: BP 122/72; PULSE 89; RESP 18; TEMP 36.7; O2SAT 96
--- NOTE | 2019-11-29 03:25 | PC.NURSE ---
Pt became angry of the fact that vitals were to be obtained every 4 hours. Pt removed tele leads and refused them. Pt refused 0800 vitals.
[2019-11-29] MEDS: enoxaparin 40 mg/0.4 mL Syringe SUBCUT (04:44)
[2019-11-29] MEDS: levoFLOXacin 750 mg Tablet PO (04:44)
[2019-11-29] MEDS: linezolid 600 mg Tablet PO (04:45)
--- NOTE | 2019-11-29 04:54 | PC.NURSE ---
TEACHER LEARNING DISABLED WENT IN TO DO MORNING ROUNDS. PT WAS VERY ANXIOUS AND RUDE WITH TEACHER LEARNING DISABLED AND THEN THREATENED TO LEAVE AMA. WAS NOTIFIED. PT DID TAKE MORNING MEDS. WILL CONTINUE TO MONITOR.
[2019-11-29] MEDS: nicotine 2 mg Gum BUCCAL (07:31)
--- NOTE | 2019-11-29 11:00 | PM.DCS ---
Discharge Providers Date of Admission: 11/25/19 03:40 Date of Discharge: November 29, 2019 Attending Provider at Admission: Yarely Lynn MD Attending Provider at Discharge: Sam Cabral MD Diagnoses at Discharge Discharge Diagnosis (1) Pneumonia: Status: Resolved Qualifiers: Laterality: right Lung location: lower lobe of lung Pneumonia type: due to unspecified organism Qualified Code(s): J18.9 - Pneumonia, unspecified organism (2) Methamphetamine use: Status: Acute Reason for Visit Reason for Visit: Sob Hospital Course Discharge Summary: 43 year old male with PMHx methamphetamine use was readmitted following recent admission during which time he required intubation due to acute respiratory failure secondary to methamphetamine overdose. Following extubation he promptly left AMA less than 24 hours ago. During this readmission was managed for pneumonia is based on his symptoms and x-ray finding. He was on broad-spectrum antibiotic. To which he responded well. During the hospital stay he also received 2D echo: Normal LVEF of 50% - 55%. Normal diastolic function. Mild LV basal and inferior wall hypokinesia. RV is normal in size and function. RA and LA is normal in size. Mitral valve is normal. Tricuspid valve is normal. Insufficient TR jet to calculate RVSP. Pulmonary valve is normal. No pericardial effusion. Ultrasound left upper extremity: No evidence of abscess. There is large amount of soft tissue edema.Venous Doppler lt upper extremity: No evidence of DVT.Head CT without contra: No acute intracranial pathology.Microbiological study: Blood culture were negative . Urine culture no growth Physical Exam Const: COMMON NORMALS: patient oriented x3 HENMT: COMMON NORMALS: normocephalic, atraumatic, hearing grossly normal bilaterally and external ears normal HEAD & SCALP: normocephalic and atraumatic EXTERNAL EAR: Yes external ears normal Eye: COMMON NORMALS: no scleral icterus GENERAL EYE: appearance normal, both eyes and all related structures Chest: COMMONS NORMALS: normal inspection of the chest and normal palpation of entire chest wall CHEST: Yes Symmetrical chest wall rise Resp: COMMON NORMALS: normal respiratory effort, No retractions, No use of accessory muscles and clear to auscultation bilaterally EFFORT & INSPECTION: Yes symmetric chest movement AUSCULTATION: clear to auscultation bilaterally Cardio: COMMON NORMALS: regular rate, regular rhythm, S1 normal heart sound present, S2 normal heart sound present, No gallops present (Cardio), No murmurs present (Cardio), No rub (Cardio) and Peripheral pulses 2+ throughout RATE: regular rate RHYTHM: regular rhythm HEART SOUNDS: S1 normal heart sound present and S2 normal heart sound present PERIPHERAL PULSES: Peripheral pulses 2+ throughout GI: COMMON NORMALS: Normal to inspection, nondistended, normoactive bowel sounds present, Soft to palpation, non-tender, No hepatosplenomegaly present and no masses AUSCULTATION: Yes normoactive bowel sounds PALPATION: Yes Soft to palpation and Yes No hepatosplenomegaly present RECTAL EXAM: Yes deferred Extremity: COMMON NORMALS: no clubbing, cyanosis or edema and no pedal edema Neuro: COMMON NORMALS: patient oriented x3 Discharge Data Data Completed and Pending: Completed Studies During Hospitalization Category Date Time Status XR chest 1V sonia ble 70420 Urgent Exams 11/25/19 01:55 Completed XR elbow LT min 3 V* [id number] Routine Exams 11/25/19 15:29 Completed CV echo complete* [id number] Routine Ultrasound 11/26/19 07:00 [place] [id number] Routin e Ultrasound 11/26/19 07:00 Completed US soft tissue/ex tremity [id number] Rout ine Ultrasound 11/26/19 07:00 Completed Pending at discharge Category Date Time Status Blood Culture Sta t Lab 11/25/19 06:30 Results Sputum Culture an d Gram Stain Amando mata Lab 11/25/19 17:44 Uncollected Vitals: Last Vital Signs Temp 98.0 F 11/29/19 03:21 Pulse 89 11/29/19 03:21 Resp 18 11/29/19 03:21 BP 122/72 11/29/19 03:21 Pulse Ox 96 11/29/19 03:21 Discharge Plan Discharge Patient Disposition: Home Condition: Stable Prescriptions: New levofloxacin 750 mg tablet 750 mg PO DAILY 5 Days RF: 0 Discharge Orders: Discharge Order (Routine); Ordered 11/29/19 Ordered By: Sam Cabral Discharge Diet: Usual diet Discharge Activity: Resume usual activity Discharge Attestations Time Spent in Discharge Care*: greater than 30 min Specific Discharge Activities: Specific discharge activities: educating patient, discussing with heel caser/social workers/dc planners, documenting/other paperwork and evaluating patient/reviewing data Quality Metrics Clinical Quality Measures During this hospital stay, did patient experience: None Coding Level of Care Code Acute 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
--- NOTE | 2019-11-29 11:35 | PC.NURSE ---
Patient not in rom at 1100. Patient did not speak with staff prior to leaving. As patient still not returned to room 101, Dr. Cabral notified.
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
== END 2019-11-29 12:00 | disposition home or self-care (01) | DRG 194 ==
LOC: ER 03:39 → CSU 04:10
PROVIDERS: Emergency Medicine; Internal Medicine; Admitting Provider Family Medicine; Visit Provider Internal Medicine
DX: J18.9 Pneumonia, unspecified organism (principal); M62.82 Rhabdomyolysis; F32.9 Major depressive disorder, single episode, unspecified; F15.90 Other stimulant use, unspecified, uncomplicated; F17.210 Nicotine dependence, cigarettes, uncomplicated; M79.622 Pain in left upper arm; M79.89 Other specified soft tissue disorders; E87.6 Hypokalemia
CPT/HCPCS: 12345; 36415; 36600; 71045; 73080; 76882; 80048; 80053; 80202; 82550; 82803; 83735; 83880; 85025; 85610; 87040; 93005; 93306; 93971; 94640; 96372; 99283; J1650; J2060; J2543; J3370; J3475; J7030; J7050; J7611

== ENCOUNTER 2020-11-19 11:22 | Emergency (ER) | payer SELFPAY ==
[2020-11-19 11:28] VITALS: PULSE 109; RESP 16; TEMP 35.8; O2SAT 94; BMI 20.2
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
[2020-11-19] MEDS: tetanus-diphtheria tox (adult) 0.5 mL SDV IM (12:09)
[2020-11-19 12:22] VITALS: BP 148/82; PULSE 100; RESP 16; TEMP 36.4; O2SAT 98
== END 2020-11-19 12:24 | disposition home or self-care (01) ==
PROVIDERS: Emergency Provider Nurse Practitioner Family
DX: S01.01XA Laceration without foreign body of scalp, initial encounter (principal); F17.210 Nicotine dependence, cigarettes, uncomplicated; Y04.2XXA Assault by strike against or bumped into by another person, initial encounter; Z23 Encounter for immunization
CPT/HCPCS: 90471; 90714; 99282

== ENCOUNTER 2020-11-21 15:45 | Inpatient (IN) | payer SELFPAY ==
[2020-11-21] VITALS (7 sets, daily range): BP systolic 117–128; BP diastolic 71–89; PULSE 83–109; RESP 14–20; TEMP 36.2–37; O2SAT 96–99; BMI 20.9
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
--- NOTE | 2020-11-21 16:39 | PC.NURSE ---
Patient is taken to CT with nursing staff due to vulgar behavior towards radiology female staff.
[2020-11-21 17:30] LABS: Amphetamines Screen Urine Positive (Negative); Barbiturates Screen Urine Negative (Negative); Benzodiazepines Screen Urine Negative (Negative); Cocaine Screen Urine Negative (Negative); Opiate Screen Urine Negative (Negative); PCP Screen Urine Negative (Negative); THC Screen Urine Positive (Negative)
[2020-11-21 17:32] LABS: Bilirubin Urine Neg (Negative); Blood Urine Neg (Negative); Glucose Urine UA Norm (Normal); Ketones Urine Negative (Negative); Leukocyte Esterase Urine Negative (Negative); Nitrate Urine Negative (Negative); Protein Urine Neg (Negative); Specific Gravity, Urine 1.015 (1.005-1.030); Urine Appearance Clear (CLEAR); Urine Color Yellow (Yellow); Urobilinogen Urine 1 mg/dL (Negative); WBC Urine 0-4 /hpf (0-5); pH Urine 5 (5-7)
[2020-11-21 17:33] LABS: Add Urine Culture? No; Bacteria Urine TRACE /hpf; Mucus Urine 1+ /hpf
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
--- NOTE | 2020-11-21 18:15 | PC.NURSE ---
Patient refuses any care at this time, unable to obtain IV or labs, he did provide urine sample upon arrival.
[2020-11-21] MEDS: haloperidol inj 5 mg/mL INJ 1 mL IVP (18:16)
[2020-11-21] MEDS: LORazepam 2 mg/mL INJ 1 mL IVP (18:17)
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
--- NOTE | 2020-11-21 20:32 | PC.NURSE ---
duplicate ativan order, confirmed with Dr Dunaway.
--- NOTE | 2020-11-21 20:57 | PC.NURSE ---
this nurse called poison control at 2039 and spoke with Taina MERCADO. she states that the toxic level of trazadone is 1200 mg for a teen to an adult. gave her current vitals and symptoms. Taina stated she would call back in a few hours to check up on him.
[2020-11-21 21:02] LABS: Basophils # 0.1 10^3/uL (0.0-0.1); Basophils % 0.8 %; Eosinophils # 0.1 10^3/uL (0.0-0.8); Eosinophils % 1.2 %; Hematocrit 43.6 % (42.0-52.0); Hemoglobin 14.7 g/dL (11.7-16.6); Lymphocytes # 2.4 10^3/uL (0.8-4.8); Mean Corpuscular HGB Conc 33.7 g/dL (30.0-36.0); Mean Corpuscular Hemoglobin 33.2 pg (28.0-34.0); Mean Corpuscular Volume 98.4 fl (80-94); Monocytes # 0.5 10^3/uL (0.2-0.9); Monocytes % 8.9 %; Neutrophils # 3.01 10^3/uL (1.8-7.7); Neutrophils % 49.8 %; Nucleated Red Blood Cells % 0 %; Platelet Count 309 10^3/cmm (130-400); Red Blood Count 4.43 10^6/uL (4.1-5.3); Red Cell Distribution Width 13.3 % (12.1-15.1); White Blood Count 6.1 10^3/uL (4.0-10.0)
[2020-11-21 21:23] LABS: Alanine Aminotransferase 19 U/L (0-41); Alcohol Level 238 mg/dL (0-10); Alkaline Phosphatase 100 IU/L (40-130); Anion Gap 18.4 (5-19); Aspartate Amino Transferase 26 U/L (0-40); Blood Urea Nitrogen 6 mg/dL (6-20); Calcium 8.8 mg/dL (8.5-10.5); Carbon Dioxide 25 mmol/L (22-29); Chloride 104 mmol/L (98-107); Free T4 Free Thyroxine 1.11 ng/dL (0.82-1.77); Globulin 2.7 g/dL (1.3-4.6); Glomerular Filtration Rate 122.5 mL/min (90-130); Glucose 101 mg/dL (65-115); Osmolality Calculated 296 mOsm/kg (285-295); Potassium 3.4 mmol/L (3.5-5.1); Sodium 144 mmol/L (136-145); Thyroid Stimulating Hormone 0.53 uIU/mL (0.27-4.20); Total Bilirubin 0.2 mg/dL (0.15-1.2); Total Protein 6.7 g/dL (6.6-8.7)
[2020-11-21 21:26] LABS: Acetaminophen < 5.0 ug/mL (10-30); Creatine Phosphokinase 390 U/L (39-308); Salicylate < 0.3 mg/dL (3-10)
--- NOTE | 2020-11-21 21:40 | PC.NURSE ---
Patient is sedated at this time, when taking vital signs and checking pulses and circulation patient arouses but does not answer questions and falls back to sleep quickly.
--- NOTE | 2020-11-22 00:22 | ECG_ITS ---
[facility] Test Date: 2020-11-21 Pat Name: Yoan Mallory Department: Room: 170 Gender: Male Clinical Program Coordinator: : 1975 Requested By: Chaparrita Easley Order Number: [id number] Damien MD: Elo Pineda M.D. Measurements Intervals [place] Rate: 84 P: 63 WV: 149 QRS: 3 QRSD: 101 T: 45 QT: 355 QTc: 421 Interpretive Statements SINUS RHYTHM SEPTAL MYOCARDIAL INFARCTION , PROBABLY OLD [40+ ms Q WAVE IN V1/V2] Compared to ECG 11/25/2019 02:00:52 Sinus tachycardia no longer present Myocardial infarct finding still present Electronically Signed On 11-24-2020 10:43:06 CDT by Elo Pineda M.D. [id number] f
[2020-11-22 06:00] VITALS: BP 139/87; PULSE 105; RESP 20; TEMP 36.6; O2SAT 98
--- NOTE | 2020-11-22 11:30 | PC.OT ---
Pt did not attend a.m. OT group.
[2020-11-22 14:00] VITALS: BP 120/74; PULSE 71; RESP 16; TEMP 36.5; O2SAT 97
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
--- NOTE | 2020-11-22 15:00 | PC.OT ---
Pt did not attend p.m. OT group.
[2020-11-22] MEDS: nicotine 2 mg Gum BUCCAL (16:08)
[2020-11-22] MEDS: hyDROXYzine 25 mg Capsule 50 MG PO (21:47)
[2020-11-22] MEDS: acetaminophen 325 mg Tablet 650 MG PO (21:47)
[2020-11-22] MEDS: trazodone 50 mg Tablet PO (21:48)
--- NOTE | 2020-11-22 21:48 | PC.NURSE ---
PRN/PM assessment Pt denies HI/SI, reports trouble controlling his anger, reports using alcohol and drugs on the normal basis, refused to elaborate. Pt denies any AH/VH at this time, reports impulse control issues. Pt is resting at this time in his room, he is cooperative with staff, polite with nurse. Pt reports hip pain of 7 in left hip, tylenol 650mg PO given for pain, reassessed, pain is less than 3. Pt requested visteril 50mg PO for anxiety and Trazodone 50mg PO to help him rest this evening, on reassessment, pt is calm and resting soundly.
--- NOTE | 2020-11-22 21:50 | PC.NURSE ---
pt requested meds for sleep, anxiety, and left hip pain. trazodone 50mg po for sleep, vistaril 50mg po for anxiety and tylenol 650mg for hip pain given.
[2020-11-22 22:00] VITALS: RESP 17
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
[2020-11-23 06:00] VITALS: RESP 17
[2020-11-23] MEDS: multivitamin therapeutic Tablet 1 TAB PO (08:05)
[2020-11-23] MEDS: folic acid 1 mg Tablet PO (08:05)
[2020-11-23] MEDS: thiamine 100 mg Tablet PO (08:05)
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
[2020-11-23 10:55] VITALS: RESP 17
--- NOTE | 2020-11-25 18:04 | PC.RESP ---
SMOKING CESSATION INFORMATION SENT TO PATIENT.
== END 2020-11-23 13:18 | disposition home or self-care (01) | DRG 897 ==
LOC: ER 16:58 → NP 22:22
PROVIDERS: Admitting Provider Psychiatry & Neurology Child & Adolescent Psychiatry; Emergency Provider Emergency Medicine; Visit Provider Psychiatry & Neurology Child & Adolescent Psychiatry
DX: F19.951 Other psychoactive substance use, unspecified with psychoactive substance-induced psychotic disorder with hallucinations (principal); F15.959 Other stimulant use, unspecified with stimulant-induced psychotic disorder, unspecified; F15.929 Other stimulant use, unspecified with intoxication, unspecified; F17.200 Nicotine dependence, unspecified, uncomplicated
CPT/HCPCS: 70450; 72125; 80053; 80306; 80307; 81001; 82550; 84439; 84443; 85025; 93005; 96374; 96375; 99285; J1630; J2060